=== PATIENT | female | born 1960 | race Caucasian/White ===

== ENCOUNTER 2017-04-26 04:39 | Outpatient (CLI) | payer MEDICARE ==
--- NOTE | ~2017-04-26 | HEMODYNAMI ---
PATIENT:JUAN J TORIBIO MEDICAL RECORD: [id number] : 60 [id number] ADMISSION DATE: 04/26/17 Generatedon:04/26/201710:51 Patient name: JUAN J TORIBIO Patient #: [id number] SSN: : 1960 Date of study: 04/26/2017 Page: Of Hemodynamic Procedure Report Patient Data Patient Demographics Procedure consent was obtained First Name: JUAN J Gender: Female Last Name: MALU : 1960 Patient #: [id number] Age: 57 year(s) Race: Unknown Additional ID: [id number] Contact details [address]: [address] [place] [address] State: [place] City: [place] Zip code: [address] Past Medical History Allergies Allergen Reaction Date Comments Reported Other allergy 04/26/2017 Aleve, Hydrocodone Admission Admission Data Admission Date: 04/26/2017 Admission Time: 4:01 [facility] Results Lab Result Date: 04/26/2017 Lab Result Time: 0:00 Biochemistry Name Units Result Min Max Creatinine mg/dl 1.6 --(----)-* 0.6 1.3 CBC Name Units Result Min Max Hemoglobin g/dl 11.1 *-(----)-- 13.5 17.5 Procedure Procedure Types Cath Procedure Diagnostic Procedure [facility] w/Coronaries FFR/IVUS Intra-Coronary IVUS Initial PCI Procedure Coronary Stent Initial Miscellaneous Procedures Moderate Sedation up to 30 minutes Procedure Description Procedure Date Procedure Date: 04/26/2017 Procedure Start Time: 10:28 Procedure End Time: 10:51 Procedure Staff Name Function Ravinder Underwood MD Performing Physician Kj Estevez RT Scrub Caroline Araya RN Nurse Ana King RT Monitor Procedure Data Cath Procedure Fluoroscopy Diagnostic fluoroscopy Total fluoroscopy Time: 4 time: 4 min min Diagnostic fluoroscopy Total fluoroscopy dose: 616 dose: 616 mGy mGy Contrast Material Contrast Material Type Amount (ml) Isovue 300 94 Entry Location Entry Primary Successful Side Size Upsize Upsize Entry Closure Succes sful Closure Location (Fr) 1 (Fr) 2 (Fr) Remarks Device Remarks Femoral Right 5 Fr 6 Fr Exoseal artery Short Estimated blood loss: 10 ml Diagnostic catheters Device Type Used For End Catheter Placement Cordis 5Fr Pigtail LV Angiography Catheter (MP) Cordis 5Fr JL 4.0 Left Coronary Catheter (MP) Angiography Cordis 5Fr 3DRC Catheter Right Coronary (MP) Angiography Procedure Complications No complications Procedure Medications Medication Administration Route Dosage Oxygen NC 2 l/min 0.9% NaCl I.V. 100 ml/hr Lidocaine 2% added to field 20 Heparin Flush Bag added to field 2 bags (1000units/500ml NS) Versed I.V. 1 mg Fentanyl I.V. 50 mcg Versed I.V. 1 mg Fentanyl I.V. 50 mcg Fentanyl I.V. 50 mcg Heparin Bolus I.V. 4000 units Plavix P.O. 75 mg Hemodynamics Rest HGB: 11.1 (g/dl) Heart Rate: 79 (bpm) Snapshots Pre Cath Intra NCS Post Cath Vital Signs Time Heart Resp SPO2 NIBP (mmHg) Rhythm Pain Sedation Rate (ipm) (%) Status Level (bpm) 10:11:43 76 14 99 119/73(107) NSR 0 (11) 10(A) , No pain 10:16:42 79 19 100 134/75(112) NSR 0 (11) 10(A) , No pain 10:20:54 78 16 99 112/68(104) NSR 0 (11) 10(A) , No pain 10:25:04 80 17 96 106/64(80) NSR 0 (11) 10(A) , No pain 10:29:10 81 14 98 98/68(91) NSR 0 (11) 9(A) , No pain 10:33:14 84 15 95 91/73(85) NSR 0 (11) 9(A) , No pain 10:39:14 84 15 97 104/85(101) NSR 0 (11) 9(A) , No pain 10:43:18 76 17 98 113/83(107) NSR 0 (11) 9(A) , No pain 10:47:26 86 17 98 123/77(92) NSR 0 (11) 10(A) , No pain 10:51:34 85 9 99 126/83(114) NSR 0 (11) 10(A) , No pain Medications Time Medication Route Dose Verified Delivered Reason Notes Effectiveness by by 10:10:38 Oxygen NC 2 Ravinder Bubbaie used for l/min Kj Araya RN procedure 10:10:54 0.9% NaCl I.V. 100 Ravinder Buffie Per physician ml/hr Kj Araya RN 10:11:07 Lidocaine 2% added 20ml Ravindermartin Castellon for local to vial Kj Underwood MD anesthetic field 10:11:14 Heparin Flush added 2 Ravinder Ravinder used for Bag to bags Kj Underwood MD procedure (1000units/500ml field NS) 10:23:04 Versed I.V. 1 mg Ravinder Velazquez for sedation Kj Araya RN 10:23:11 Fentanyl I.V. 50 Ravinder Macie for sedation mcg Kj Araya RN 10:32:51 Versed I.V. 1 mg Ravinder Velazuqez for sedation Kj Araya RN 10:32:54 Fentanyl I.V. 50 Ravinder Velazquez for sedation mcg Kj Araya RN 10:36:36 Fentanyl I.V. 50 Ravinder Macie for sedation mcg Kj Araya RN 10:37:21 Heparin Bolus I.V. 4000 Ravinder Velazquez for verifi ed units Kj Araya RN anticoagulation with dr underwood 10:49:15 Plavix P.O. 75 mg Ravinder Velazquez for Kj Araya RN antiplatelet therapy Procedure Log Time Note 9:57:06 Informed consent obtained and on chart 9:57:27 Diagnostic Cath status Elective 9:57:29 Caroline Araya RN sent for patient. Start room use. 9:57:30 Time tracking: Regular hours 9:57:33 Plan of Care:Hemodynamics will remain stable., Cardiac rhythm will remain stable., Comfort level will be maintained., Respiratory function will remain adequate., Patient/ family verbilizes understanding of procedure., Procedure tolerated without complication., Recovers from procedure without complications.. 9:58:06 H&P Date Dictated: 04/26/2017 Within 30 days and on chart.. 10:06:01 Patient received from Med II to [facility] 2 Alert and oriented. Tansferred to table in Supine position. 10:06:06 Warm blankets applied, and casimiro hugger turned on for patient comfort. 10:06:07 ECG and BP/O2 sat monitors applied to patient. 10::09 Pre-procedure instructions explained to patient. 10::09 Pre-op teaching completed and patient verbalized understanding. 10:06:11 Family in patients room. 10:06:12 Patient NPO since Midnight. 10::41 Patient allergic to Other allergyAleve, Hydrocodone 10::43 Is the patient allergic to Iodine/contrast media? No. 10::44 Was the patient premedicated? No 10:09:46 Is patient on blood thinner?Yes 10::50 ACC The patient was administered the following blood thiners within the last 24 hours: ACCPlavix 10:09:54 Patient diabetic? Yes. 10:09:58 If diabetic: On Metformin? No 10:10:01 Previous problem with sedation/anesthesia? No ? 10:10:04 Snore? Yes 10:10:05 Sleep apnea? Yes 10:10:06 Deviated septum? No 10:10:07 Opens mouth fully? Yes 10:10:07 Sticks out tongue? Yes 10:10:12 Airway obstruction? Yes copd 10:10:21 Dentures? Yes in tight 10:10:38 Oxygen 2 l/min NC was administered by Caroline Araya RN; used for procedure; 10::41 Vital chart was started 10:10:54 0.9% NaCl 100 ml/hr I.V. was administered by Caroline Araya RN; Per physician; 10:11:06 Pre procedure: right dorsailis pedis pulse 2+ Normal; easily identifiable; not easily obliterated 10:11:07 Lidocaine 2% 20ml vial added to field was administered by Ravinder Underwood MD; for local anesthetic; 10:11:08 Pre procedure: left dorsailis pedis pulse 2+ Normal; easily identifiable; not easily obliterated 10:11:10 Patient pain scale 0/10 ?. 10:11:14 Heparin Flush Bag (1000units/500ml NS) 2 bags added to field was administered by Ravinder Underwood MD; used for procedure; 10:11:18 IV patent on arrival in right wrist with 0.9% NaCl at [facility]. 10:13:42 Lab Result : Creatinine 1.6 mg/dl 10:13:42 Lab Result : Hemoglobin 11.1 g/dl 10:15:07 Lab results completed and on chart. 10:15:13 Right groin area was prepped with chlora-prep and draped in sterile fashion 10:15:14 Alarms reviewed by R. N. 10:15:14 Sharps counted by scrub and verified by R.N. 10:15:16 Use device set Femoral Dx 10:15:17 Acist Syringe opened to sterile field. 10:15:18 Bag Decanter opened to sterile field. 10:15:18 Medline Cath Pack opened to sterile field. 10:15:18 Terumo 5Fr [place] Sheath opened to sterile field. 10:15:19 St Giovanni 260cm J .035 wire opened to sterile field. 10:15:20 Acist Hand Control opened to sterile field. 10:15:20 Acist Manifold opened to sterile field. 10:15:21 Diagnostic Infinity 5Fr Multipack catheter opened to sterile field. 10:15:21 Tegaderm 4 x 4 opened to sterile field. 10:17:31 Baseline sample Acquired. 10:20:25 Final Timeout: patient, procedure, and site verified with staff and physician. All members of the team are in agreement. 10:20:27 Right groin site verified by team. 10:20:30 Physical assessment completed. ASA score P 2 - A patient with mild systemic disease as per Ravinder Underwood MD. 10:20:33 Sedation plan: IV Moderate Sedation Versed, Fentanyl 10:23:04 Versed 1 mg I.V. was administered by Caroline Araya RN; for sedation; 10:23:11 Fentanyl 50 mcg I.V. was administered by Caroline Araya RN; for sedation; 10:24:22 Zero performed for pressure channel P1 10:27:36 PERCUTANEOUS ENTRY 19GA needle opened to sterile field. 10:28:49 Procedure started. 10:28:49 Full Disclosure recording started 10:28:59 Local anesthetic to right femoral artery with Lidocaine 2% by Ravinder Underwood MD.INITIAL ACCESS ONLY 10:31:58 A 5 Fr sheath was inserted into the Right Femoral artery 10:32:40 A Cordis 5Fr Pigtail Catheter (MP) was advanced over the wire and used for LV Angiography. 10:32:51 Versed 1 mg I.V. was administered by Caroline Araya RN; for sedation; 10:32:54 Fentanyl 50 mcg I.V. was administered by Caroline rAaya RN; for sedation; 10:33:27 LV gram done using WOO 10:33:36 EF : 60 % 10:33:39 Injector settings: Ml/sec: 10, Volume: 20, 10:33:40 Catheter removed. 10:33:56 A Cordis 5Fr JL 4.0 Catheter (MP) was advanced over the wire and used for Left Coronary Angiography. 10:35:13 Catheter removed. 10:35:21 A Cordis 5Fr 3DRC Catheter (MP) was advanced over the wire and used for Right Coronary Angiography. 10:35:35 Terumo 6Fr [place] Sheath opened to sterile field. 10:35:36 Evident Software BasixCompak Inflation Kit opened to sterile field. 10:35:36 Lowry Whisper J 300cm 0.014 guide wire opened to sterile field. 10:36:11 [place]wood [employer] [place] IVUS Catheter opened to sterile field. 10:36:36 Fentanyl 50 mcg I.V. was administered by Caroline Araya RN; for sedation; 10:37:21 Heparin Bolus 4000 units I.V. was administered by Caroline Araya RN; for anticoagulation; verified with dr underwood 10:37:38 Medtronic Launcher 6Fr AR 1.0 guide catheter opened to sterile field. 10:37:46 Catheter removed. 10:37:53 Sheath upsized to a 6 Fr Short. 10:37:58 6 Fr AR 1.0 guide catheter was inserted over the wire 10:38:01 Guide Catheter removed. pressure damping. 10:38:06 Medtronic Launcher 6Fr AR 1.0 SH guide catheter opened to sterile field. 10:38:31 6 Fr AR 1.0 SH guide catheter was inserted over the wire 10:38:56 Whisper wire advanced. 10:39:26 IVUS catheter advanced over wire. 10:39:29 IVUS pass to RCA lesion performed. 10:39:37 Procedure type changed to Cath procedure, Diagnostic procedure, LHC, [facility] w/Coronaries, FFR/IVUS, Intra-Coronary IVUS Initial, PCI procedure, Coronary Stent Initial, Miscellaneous Procedures, Moderate Sedation up to 30 minutes 10:43:01 IVUS catheter removed over wire. 10:45:05 Inflation Number: 1 A Promus Premier OTW 3.0 x 38 stent was prepped and advanced across the Prox RCA. The stent was deployed at 13 KRISTAL for 0:09 (min:sec). 10:45:24 Stent catheter was removed intact over wire. 10:45:25 Wire removed. 10:45:25 Guide catheter removed. 10:45:38 Sheath removed intact; hemostasis achieved with Exoseal to the Right Femoral artery. 10:45:45 Cordis 6Fr Exoseal opened to sterile field. 10:45:47 Procedure ended.(Physican Out) 10:49:03 Fluoroscopy time 04.00 minutes. 10:49:06 Fluoroscopy dose: 616 mGy 10:49:06 Flurop Dose total: 616 10:49:09 Contrast amount:Isovue 300 94ml. 10:49:10 Sharps counted by scrub and verified by R.N. 10:49:11 Insertion/operative site no bleeding no hematoma. 10:49:13 Post-op/insertion site Right Femoral artery dressed using a 4 x 4 and Tegaderm. 10:49:15 Plavix 75 mg P.O. was administered by Caroline Araya RN; for antiplatelet therapy; 10:49:17 Post right femoral artery:stable, clean and dry 10:49:19 Post Procedure Pulses reassessed and unchanged 10:49:21 Post-procedure physical assessment completed. ASA score P 2 - A patient with mild systemic disease as per Ravinder Underwood MD. 10:49:23 Post procedure rhythm: unchanged. 10:49:25 Estimated blood loss: 10 ml 10:49:31 Post procedure instruction explained to patient.Patient verbalizes understanding. 10:49:31 Patient needs reinforcement of post procedure teaching. 10:49:37 Procedure Complication : No complications 10:49:39 See physician's report for complete and final results. 10:50:38 Procedure and supply charges have been captured, reviewed, submitted and are correct. 10:51:19 Vital chart was stopped 10:51:22 Report given to PCU. 10:51:25 Patient transfered to PCU with Bed. 10:51:31 Procedure ended. 10:51:31 Full Disclosure recording stopped 10:51:34 End room use (Document Last) Intervention Summary Intervention Notes Time ActionType Lesion and Equipment Action# Pressure Duration Attributes Used 10:45:05 Place stent Prox RCA Promus 1 13 00:09 Premier OTW 3.0 x 38 stent Device Usage Item Name Manufacture Quantity Catalog Number Hospital Part Current Min imal Lot# / Charge Number Stock Stock Serial# Code Acist Acist 1 [id number] [id number] [id number] 20 Syringe Medical Systems Inc Bag Decanter Microtek 1 2002S 014936 91618 124764 5 Medical Inc. Medline Cath Cardinal 1 [id number] 892253 16476 939720 5 Pack Health Terumo 5Fr Terumo 1 [id number] 200610 027673 566637 [address] Giovanni 1 [id number] 202720 998991 430376 30 260cm J .035 wire Acist Hand Acist 1 85119 166844 930501 980599 5 Control Medical Systems Inc Acist Acist 1 95068 750719 676818 352657 5 Manifold Medical Systems Inc Diagnostic Cardinal 1 UL5517 226726 94692 278291 30 Infinity 5Fr Health Multipack catheter Tegaderm 4 x 3M 1 1626W 166593 801674 097372 5 4 PERCUTANEOUS [facility] 1 [id number] 692198 376207 5 ENTRY 19GA needle Cordis 5Fr Cardinal 1 263182 5 Pigtail Health Catheter (MP) Cordis 5Fr Cardinal 1 242797 5 JL 4.0 Health Catheter (MP) Cordis 5Fr Cardinal 1 917886 5 3DRC Health Catheter (MP) Terumo 6Fr Terumo 1 [id number] 741003 858907 290589 40 [place] Sheath Merit Merit 1 [id number] 803303 332705 748091 15 [facility] Inflation Kit Lowry Lowry 1 [id number] 948120 489066 416192 5 Whisper J Vascular 300cm 0.014 guide wire Elwood Elwood 1 [id number] 993469 922777 854792 8 [employer] IVUS Catheter Medtronic Medtronic 1 [id number] 391420 93753 832771 1 Launcher 6Fr AR 1.0 guide catheter Medtronic Medtronic 1 [id number] 124580 88382 716783 1 Launcher 6Fr AR 1.0 SH guide catheter Promus Capay 1 [id number] 066933 696984 5 [id number] Premier OTW Scientific 3.0 x 38 stent Cordis 6Fr Cardinal 1 [id number] 334844 501914 056704 10 [facility] Health Signature Audit [place] Stage Time Signature Unsigned Intra-Procedure 04/26/2017 Ana 10:51:47 AM Counts RT(R) Signatures Monitor : Ana Signature : Counts RT Date : Time : [address] [place] [address]
--- NOTE | ~2017-04-26 | DS ---
PATIENT:JUAN J TIPTON :60 MEDICAL RECORD: [id number] DISCHARGE SUMMARY ADMISSION DATE: 04/26/17 DISCHARGE DATE: DATE OF SERVICE: 04/27/2017. DISCHARGE DIAGNOSES: 1. Angina, unstable. 2. Coronary artery disease. 3. Percutaneous transluminal coronary angioplasty stent to right coronary artery and left circumflex this admission. HOSPITAL COURSE: Mrs. Tipton presents with unstable angina, found to have 2-vessel disease of the RCA and left circumflex, underwent successful PTCA stent of above, had an uneventful postop course. She was discharged home with the addition of aspirin and Plavix to her medical regimen. Will follow up with [facility] in 1 month. TRANSINT:[id number] Voice Confirmation ID: [id number] DOCUMENT ID: [id number] BRANDON REINA MD CC: [id number] DICTATION DATE: 04/27/17825 SPRAY MAKER: 04/27/[address] [facility] [address] [id number]
--- NOTE | ~2017-04-26 | OP ---
PATIENT NAME: JUAN J TORIBIO MEDICAL RECORD: [id number] :60 LOCATION:D.M2 D.2119 ADMISSION DATE:04/26/17 SURGEON: BRANDON REINA MD DATE OF OPERATION: 04/27/2017 PROCEDURES: 1. PTCA stent left circumflex. 2. PTCA LAD. 3. Selective coronary angiography. INDICATIONS: Angina and coronary artery disease. PROCEDURE IN DETAIL: After informed consent was obtained and after detailed explanation of risks, benefits as well as alternative therapies, the patient elected to proceed with angiogram and angioplasty. The left femoral area was prepped and draped in normal sterile fashion. Left femoral artery was cannulated via modified Seldinger technique with placement of 6-Occitan sheath. All catheters exchanged through this sheath. FINDINGS: The left circumflex has 90% stenosis at the ostium. This was addressed with a 3.0 x 8 mm [place] stent, this caused plaque shift into the LAD. The LAD was ballooned with a stent balloon. Result was 0% residual throughout. OVERALL IMPRESSION: Successful percutaneous transluminal coronary angioplasty stent of the left circumflex going from 90% initial stenosis to 0% residual stenosis. TRANSINT:[id number] Voice Confirmation ID: [id number] DOCUMENT ID: [id number] BRANDON REINA MD CC: [id number] DICTATION DATE: 04/27/17826 SALES AGENT PEST CONTROL SERVICE: 04/27/17 09 ADM IN [place] [id number] [place] [id number]
--- NOTE | ~2017-04-26 | HEMODYNAMI ---
PATIENT:JUAN J TORIBIO MEDICAL RECORD: [id number] : 60 [facility] [id number] ADMISSION DATE: 04/26/17 Generatedon:04/27/20178:27 Patient name: JUAN J TORIBIO Patient #: [id number] : 1960 Date of study: 04/27/2017 Page: Of Hemodynamic Procedure Report Patient Data Patient Demographics Procedure consent was obtained First Name: JUAN J Gender: Female Last Name: MALU : 1960 Patient #: [id number] Age: 57 year(s) Race: SSN: [id number] Additional ID: [id number] Contact details [address]: [address] [place] [address] State: [place] City: [place] Zip code: [address] Past Medical History Allergies Allergen Reaction Date Comments Reported Other allergy 04/26/2017 Aleve, Hydrocodone Admission Admission Data Admission Date: 04/26/2017 Admission Time: 4:01 Arrival Date: 04/26/2017 Arrival Time: 4:01 Admit Source: Other Insurance Payor: Medicare Room #: D.2119 Lab Results Lab Result Date: 04/27/2017 Lab Result Time: 0:00 Biochemistry Name Units Result Min Max BUN mg/dl 24 --(----)-* 7 18 Creatinine mg/dl 1.6 --(----)-* 0.6 1.3 CBC Name Units Result Min Max Hemoglobin g/dl 11.1 *-(----)-- 13.5 17.5 Procedure Procedure Types Cath Procedure PCI Procedure Coronary Stent Initial Miscellaneous Procedures Moderate Sedation up to 30 minutes Procedure Description Procedure Date Procedure Date: 04/27/2017 Procedure Start Time: 8:14 Procedure End Time: 8:25 Procedure Staff Name Function Ravinder Underwood MD Performing Physician Brynn Hein RT Scrub Shravan Peace RT Scrub Walter Nelson RN Nurse Idalia Diaz RT Monitor Indication Angina Procedure Data Cath Procedure Fluoroscopy Diagnostic fluoroscopy Total fluoroscopy Time: 3.1 time: 3.1 min min Diagnostic fluoroscopy Total fluoroscopy dose: 292 dose: 292 mGy mGy Contrast Material Contrast Material Type Amount (ml) Isovue 300 35 Entry Location Entry Primary Successful Side Size Upsize Upsize Entry Closure Succes sful Closure Location (Fr) 1 (Fr) 2 (Fr) Remarks Device Remarks Femoral Left 6 Fr Exoseal artery Short Estimated blood loss: 5 ml Procedure Complications No complications Procedure Medications Medication Administration Route Dosage 0.9% NaCl I.V. 100 ml/hr Oxygen NC 2 l/min Heparin Flush Bag added to field 2 bags (1000units/500ml NS) Lidocaine 2% added to field 20 Versed I.V. 1 mg Fentanyl I.V. 50 mcg Versed I.V. 1 mg Fentanyl I.V. 50 mcg Heparin Bolus I.V. 4000 units Hemodynamics Rest HGB: 11.1 (g/dl) Heart Rate: 79 (bpm) Snapshots Pre Cath Intra NCS Post Cath Vital Signs Time Heart Resp SPO2 etCO2 RU6cgns NIBP (mmHg) Rhythm Pain Sedation Rate (ipm) (%) (mmHg) (mmHg) Status Level (bpm) 8:00:46 78 10 100 0 0 146/74(104) NSR 0 (11) 10(A) , No pain 8:05:35 79 16 97 0 0 133/49(126) NSR 0 (11) 10(A) , No pain 8:10:13 80 16 98 0 0 93/63(72) NSR 0 (11) 9(A) , No pain 8:15:31 78 14 98 0 0 121/46(64) NSR 0 (11) 9(A) , No pain 8:20:19 80 14 97 0 0 114/41(62) NSR 0 (11) 9(A) , No pain 8:25:06 80 16 99 0 0 113/44(66) NSR 0 (11) 9(A) , No pain Medications Time Medication Route Dose Verified Delivered Reason Notes Effectiveness by by 7:58:35 0.9% NaCl I.V. 100 Walter Walter Per physician ml/hr Omar Nelson RN RN 7:58:51 Oxygen NC 2 Walter Walter Per physician l/min Omar Nelson RN RN 7:59:11 Heparin Flush added 2 Walter Walter used for Bag to bags Omar Nelson procedure (1000units/500ml field RN RN NS) 7:59:28 Lidocaine 2% added 20ml Walter Walter for local to vial Omar Nelson anesthetic field RN RN 8:04:24 Versed I.V. 1 mg Walter Walter for sedation Omar Nelson RN RN 8:04:35 Fentanyl I.V. 50 Walter Walter for sedation mcg Omar Nelson RN RN 8:14:47 Versed I.V. 1 mg Walter Walter for sedation Omar Nelson RN RN 8:14:59 Fentanyl I.V. 50 Walter Walter for sedation mcg Omar Nelson RN RN 8:18:40 Heparin Bolus I.V. 4000 Walter Walter for units Omar Nelson anticoagulation RN cartoon designer Log Time Note 7:42:06 Informed consent obtained and on chart 7:42:11 Diagnostic Cath Status : Elective 7:42:39 Indication : Angina 7:42:44 Shravan Peace RT(R) sent for patient. Start room use. 7:42:45 Time tracking: Regular hours 7:42:50 Plan of Care:Hemodynamics will remain stable., Cardiac rhythm will remain stable., Comfort level will be maintained., Respiratory function will remain adequate., Patient/ family verbilizes understanding of procedure., Procedure tolerated without complication., Recovers from procedure without complications.. 7:45:26 Admit Source: Other 7:45:34 Arrival Date: 04/26/2017 4:01:00 AM 7:45:45 Insurance Payor : Medicare 7:46:37 Lab Result : Hemoglobin 11.1 g/dl 7:46:37 Lab Result : Creatinine 1.6 mg/dl 7:46:37 Lab Result : BUN 24 mg/dl 7:53:43 Patient received from Med II to CCL 1 Alert and oriented. Tansferred to table in Supine position. 7:53:44 Warm blankets applied, and casimiro hugger turned on for patient comfort. 7:53:45 Correct patient and procedure confirmed by team. 7:53:45 ECG and BP/O2 sat monitors applied to patient. 7:58:35 0.9% NaCl 100 ml/hr I.V. was administered by Walter Nelson RN; Per physician; 7:58:51 Oxygen 2 l/min NC was administered by Walter Nelson RN; Per physician; 7:59:11 Heparin Flush Bag (1000units/500ml NS) 2 bags added to field was administered by Walter Nelson RN; used for procedure; 7:59:28 Lidocaine 2% 20ml vial added to field was administered by Walter Nelson RN; for local anesthetic; 7:59:47 Vital chart was started 8:00:50 Baseline sample Acquired. 8:00:55 Rhythm: sinus rhythm 8:00:56 Full Disclosure recording started 8:01:07 H&P Date Dictated: 04/26/2017 Within 30 days and on chart., H&P Addendum completed by physician on day of procedure. (MUST COMPLETE FOR ALL OUTPATIENTS). 8:01:15 Pre-procedure instructions explained to patient. 8:01:16 Pre-op teaching completed and patient verbalized understanding. 8:01:24 Family in patients room. 8:01:25 Patient NPO since Midnight. 8:01:27 Is the patient allergic to Iodine/contrast media? No. 8:01:29 Is patient on blood thinner?Yes 8:01:31 ACC The patient was administered the following blood thiners within the last 24 hours: ACCPlavix 8:01:34 Patient diabetic? Yes. 8:01:36 If diabetic: On Metformin? No 8:01:39 Previous problem with sedation/anesthesia? No ? 8:01:42 Snore? Yes 8:01:48 Sleep apnea? Yes 8:01:49 Deviated septum? No 8:01:50 Opens mouth fully? Yes 8:01:50 Sticks out tongue? Yes 8:01:55 Airway obstruction? Yes COPD 8:02:13 Dentures? No ? 8:02:16 Pre procedure: left dorsailis pedis pulse 1+ Palpable, but thready & weak; easily obliterated 8:02:24 Patient pain scale 0/10 ?. 8:02:29 IV patent on arrival in right forearm with 0.9% NaCl at [facility]. 8:02:42 Lab results completed and on chart. 8:02:45 Left groin area was prepped with chlora-prep and draped in sterile fashion 8:03:43 Pt's abdomen was taped back for groin access. 8:03:45 Alarms reviewed by R. N. 8:03:46 Sharps counted by scrub and verified by R.N. 8:03:49 --------ALL STOP TIME OUT------ 8:03:50 Final Timeout: patient, procedure, and site verified with staff and physician. All members of the team are in agreement. 8:03:54 Left groin site verified by team. 8:03:57 Physical assessment completed. ASA score P 2 - A patient with mild systemic disease as per Ravinder Underwood MD. 8:04:00 Sedation plan: IV Moderate Sedation Versed, Fentanyl 8:04:24 Versed 1 mg I.V. was administered by Walter Nelson RN; for sedation; 8:04:35 Fentanyl 50 mcg I.V. was administered by Walter Nelson RN; for sedation; 8:06:29 Use device set Femoral PCI 8:06:31 Acist Syringe opened to sterile field. 8:06:31 Acist Hand Control opened to sterile field. 8:06:31 Bag Decanter opened to sterile field. 8:06:32 Medline Cath Pack opened to sterile field. 8:06:32 Terumo 6Fr Marietta Sheath opened to sterile field. 8:06:32 St Giovanni 260cm J .035 wire opened to sterile field. 8:06:33 Merit BasixCompak Inflation Kit opened to sterile field. 8:06:33 Acist Manifold opened to sterile field. 8:06:34 Tegaderm 4 x 4 opened to sterile field. 8:09:58 Zero performed for pressure channel P1 8:10:06 Zero performed for pressure channel P1 8:10:22 PCI Cath status Elective 8:14:37 Lowry Whisper J 300cm 0.014 guide wire opened to sterile field. 8:14:38 Cordis 6FR XBLAD 4.0 guide catheter opened to sterile field. 8:14:41 Procedure started. 8:14:46 Local anesthetic to left femerol artery with Lidocaine 2% by Ravinder Underwood MD.INITIAL ACCESS ONLY 8:14:47 Versed 1 mg I.V. was administered by Walter Nelson RN; for sedation; 8:14:55 A 6 Fr Short sheath was inserted into the Left Femoral artery 8:14:59 Fentanyl 50 mcg I.V. was administered by Walter Nelson RN; for sedation; 8:16:27 6 Fr xblad 4 guide catheter was inserted over the wire 8:17:12 whisper wire advanced. 8:18:40 Heparin Bolus 4000 units I.V. was administered by Walter Nelson RN; for anticoagulation; 8:18:54 Wire advanced across lesion. 8:20:39 Inflation Number: 1 A Sung OTW 3.0 x 08 stent was prepped and advanced across the Prox CX. The stent was deployed at 15 KRISTAL for 0:10 (min:sec). 8:21:16 Wire redirected to lad. 8:22:15 Inflation number: 1 The stent balloon was then re-inflated across the Prox LAD to 11 KRISTAL for 0:10 (min:sec). 8:22:20 Stent catheter was removed intact over wire. 8:22:20 Wire removed. 8:22:21 Guide catheter removed. 8:22:33 Cordis 6Fr Exoseal opened to sterile field. 8:22:45 Sheath removed intact; hemostasis achieved with Exoseal to the Left Femoral artery. 8:22:47 Procedure ended.(Physican Out) 8:23:31 Fluoroscopy time 03.10 minutes. 8:23:35 Flurop Dose total: 292 8:23:35 Fluoroscopy dose: 292 mGy 8:23:40 Contrast amount:Isovue 300 35ml. 8:23:42 Sharps counted by scrub and verified by R.N. 8:23:43 Insertion/operative site no bleeding no hematoma. 8:23:46 Post-op/insertion site Left Femoral artery dressed using a 4 x 4 and Tegaderm. 8:23:50 Post left femerol artery:stable 8:23:52 Post Procedure Pulses reassessed and unchanged 8:23:58 Post procedure rhythm: unchanged. 8:24:01 Estimated blood loss: 5 ml 8:24:02 Post procedure instruction explained to patient.Patient verbalizes understanding. 8:24:03 Patient needs reinforcement of post procedure teaching. 8:24:40 Procedure type changed to Cath procedure, PCI procedure, Coronary Stent Initial, Miscellaneous Procedures, Moderate Sedation up to 30 minutes 8:25:19 Procedure and supply charges have been captured, reviewed, submitted and are correct. 8:25:24 Procedure Complication : No complications 8::41 Vital chart was stopped 8:25:41 See physician's report for complete and final results. 8:25:44 Report given to [facility]. 8:25:47 Patient transfered to [facility] with Stretcher. 8:25:48 Procedure ended. 8:25:48 Full Disclosure recording stopped 8:25:55 ACC-PCI Only Patient was given prescriptions, or instructed by Ravinder Underwood MD to start/continue the following medications upon discharge: Plavix 8:25:57 End room use (Document Last) Intervention Summary Intervention Notes Time ActionType Lesion and Equipment Action# Pressure Duration Attributes Used 8:20:39 Place stent Prox CX Ashford OTW 1 15 00:10 3.0 x 08 stent 8:22:15 Reinflate Prox LAD Ashford OTW 1 11 00:10 stent 3.0 x 08 balloon stent Device Usage Item Name Manufacture Quantity Catalog Hospital Part Current Minima l Lot# / Number Charge Number Stock Stock Serial# Code Acist Acist 1 66716 [id number] 581979 068425 20 Syringe Medical Systems Inc Acist Hand Acist 1 13483 345098 159857 328269 5 Control Medical Systems Inc Bag Microtek 1 2002S 821415 73751 504445 5 Wings Intellect Inc. Medline Cardinal 1 [id number] 439117 36786 821840 5 Cath Pack Health Terumo 6Fr Terumo 1 [id number] 529457 216897 096503 [address] St Giovanni 1 375502 176400 593872 359086 30 260cm J .035 wire Merit Merit 1 [id number] 360811 839611 494457 15 Anyang Phoenix Photovoltaic TechnologyixLeap4Life Global Medical Inflation Kit Acist Acist 1 35368 635337 288852 168552 5 SafeAwake Medical Systems Inc Tegaderm 4 3M 1 1626W 401878 886422 486193 5 x 4 Lowry Lowry 1 [id number] 702939 978629 062532 5 Whisper J Vascular 300cm 0.014 guide wire Cordis 6FR Cardinal 1 [id number] 922172 605166 494081 3 XBLAD 4.0 Health guide catheter Sung OTW Medtronic 1 [id number] 828145 9925403 467398 5 [id number] 3.0 x 08 stent Cordis 6Fr Cardinal 1 EX600 580193 275752 987545 10 [facility] Health Signature Audit Hazel Hurst Stage Time Signature Unsigned Intra-Procedure 04/27/2017 Idalia Diaz 8:27:47 AM RT(R) Signatures Monitor : Idalia Diaz RT Signature : Date : Time : [place] [id number] [place] [address]
--- NOTE | ~2017-04-26 | OP ---
PATIENT NAME: JUAN J TORIBIO MEDICAL RECORD: [id number] :60 LOCATION:D.M2 D.2119 ADMISSION DATE:04/26/17 SURGEON: BRANDON REINA MD DATE OF OPERATION: 04/26/2017 PROCEDURE: 1. PTCA stent to RCA. 2. Intravascular ultrasound. 3. Left heart catheterization. 4. Selective coronary angiography. 5. Left ventriculogram. INDICATION: Angina and coronary artery disease. PROCEDURE IN DETAIL: After informed consent was obtained and after detailed explanation of risks, benefits as well as alternative therapies, the patient elected to proceed with angiogram and angioplasty. The right radial area was prepped and draped in normal sterile fashion. Right radial artery was cannulated via modified Seldinger technique with placement of 6-Namibian sheath. All catheters were exchanged through this sheath. FINDINGS: The left ventriculogram was performed in standard 30-degree WOO view, reveals preserved cardiac wall motion, ejection fraction 55%. SELECTIVE CORONARY ANGIOGRAPHY: 1. Left main showed no significant angiographic disease. 2. Left anterior descending has previously placed stent. This is widely patent with no significant restenosis. No disease elsewise throughout the LAD or its branches. 3. Left circumflex has 90% stenosis at the ostium. 4. The right coronary has a long area of 80% stenosis confirmed by intravascular ultrasound. PTCA STENT OF THE RIGHT CORONARY ARTERY: The stent used was 3.0x38 mm Promus. Result was 0% residual stenosis. OVERALL IMPRESSION: Successful percutaneous transluminal coronary angioplasty stent of the right coronary artery going from a long area of 80% initial stenosis to 0% residual stenosis. PLAN: PTCA stent of the left circumflex in the near future. TRANSINT:[id number] Voice Confirmation ID: [id number] DOCUMENT ID: [id number] BRANDON REINA MD CC: [id number] DICTATION DATE: 04/26/17 1103 TERRITORY SERVICE REPRESENTATIVE: 04/26/17 1124 ADM IN [place] [id number] [place] [address]
[2017-04-26 04:00] VITALS: BP 130/70
--- NOTE | 2017-04-26 04:34 | NUR ---
ARRIVED TO FLOOR AND PLACED ON TELEMETRY. ORIENTED TO UNIT, CALL LIGHT IN REACH. CONSENTS OBTAINED. NPO AT THIS TIME. WILL CONTINUE TO MONITOR. SEE NURSE ASSESSMENT.
[~2017-04-26 04:39] MED LIST: BUPROPION HCL150 M1 PO; BUPROPION XL150 MG PO; FUROSEMIDE40 MG; HUMULIN R100 U/ML SC; K-DUR20 MEQ PO; LANOXIN125 MCG PO; LEVOTHYROXINE50 MCG PO; NITROQUICK0.4 MG SL; PROAIR HFA8.5 GM INH; TOUJEO SOL300 UNIT/1
--- NOTE | 2017-04-26 07:15 | NUR ---
RECEIVED PT IN BED EYES CLOSED RESP UNLABORED NAD NOTED
[2017-04-26 08:25] VITALS: BP 118/49
[2017-04-26 09:45] LABS: BASOPHILS 0.6 % (0-2); EOSINOPHILS 1.9 % (0-7); HEMOGLOBIN 11.1 g/dL (12-16); IMMATURE GRANULOCYTES 0.4 % (0-5); LYMPHOCYTES 29.1 % (15-50); MCH 32.2 pg (26.0-34.0); MCHC 32.6 g/dL (31.0-37.0); MCV 98.6 fL (80.0-100.0); MEAN PLATELET VOLUME 9.8 fL (7.4-10.4); PLATELET COUNT 124 10x3/uL (130-400); RBC 3.45 10x6/uL (4.00-5.40); RDW 14.9 % (11.5-14.5)
[2017-04-26 10:02] LABS: CALCIUM 9.1 mg/dL (8.5-10.1); CARBON DIOXIDE 31.4 mmol/L (21.0-32.0); CREATININE - SERUM 1.6 mg/dL (0.6-1.3); POTASSIUM - SERUM 4.4 mmol/L (3.5-5.1)
--- NOTE | 2017-04-26 10:03 | NUR ---
PREOP MEDS GIVEN TO CORPORATE CLAIMS EXAMINER VIA BED
[2017-04-26 12:12] VITALS: BP 94/71
[2017-04-26 16:24] VITALS: BP 102/50
[2017-04-26 20:00] VITALS: BP 126/58
--- NOTE | 2017-04-26 21:18 | NUR ---
PT AWAKE/ALERT/ORIENTED. C/O CHEST PRESSURE. WANTING PAIN MEDICATION AND THERE ARE NO ORDERS FOR ANY. NOTED ALLERGIES TO HYDROCODONE AND MORPHINE. PAGE TO DR REINA FOR NEW ORDERS.
--- NOTE | 2017-04-26 21:50 | NUR ---
RETURN CALL FROM DR REINA. REVIEWED PT ALLERGIES. NEW PAIN MED ORDER RECIEVED.
[2017-04-27] VITALS: BP 117/51
[2017-04-27 04:00] VITALS: BP 123/59
--- NOTE | 2017-04-27 06:00 | NUR ---
AFTER TAKING ONE DOSE OF IV DILAUDID, PT DEVELOPED EXTREME ITCHING. MEDICATED WITH BENADRYL 25MG SIVP. TALKED IN DEPTH WITH PT ON WHY SHE SAYS SHE IS ALLERGIC TO MORPHINE AND HYDROCODONE. PT NOW SAYING THAT SHE ISNT REALLY ALLERGIC TOO THEM, JUST THAT IF SHE TAKES TOO MUCH SHE ACTS WEIRD. PT CHANGED UP HER REASONS SEVERAL TIMES SO FINALLY DC'D THE DILAUDID WHICH OBVIOUSLY CAUSED SEVERE ITCHING. DID NOT ALLOW PT TO THEN TAKE A DOSE OF IV MORPHINE AFTER SHE STOPPED ITCHING FROM THE DILAUDID. WILL MONITOR.
--- NOTE | 2017-04-27 08:04 | NUR ---
PRE-OPS GIVEN. TO DISTANCE EDUCATION DIRECTOR BY BED.
--- NOTE | 2017-04-27 08:45 | NUR ---
BACK FROM EDUCATION INSTRUCTOR. VS WNL. LEFT GROIN STABLE WITHOUT BLEEDING OR HEMATOMA NOTED. WILL MONITOR.
[2017-04-27 09:19] VITALS: BP 115/50
[2017-04-27 12:09] VITALS: BP 118/64
--- NOTE | 2017-04-27 12:19 | NUR ---
BED REST UP. GROIN STABLE.
[2017-04-27 14:54] VITALS: BP 119/64
[2017-04-27 19:00] VITALS: BP 105/55
--- NOTE | 2017-04-27 19:29 | NUR ---
RESUMED CARE OF PT, LYING IN BED RESPIRATIONS EVEN AND UNLABORED ON ROOM AIR. 85 SR ON TELEMETRY. SUKHDEV GROINS C/D/I WITH PEDAL PULSES PALPABLE. REQUESTS PAIN MEDICATION. WILL CONTINUE TO MONITOR. CALL LIGHT IN REACH. SEE NURSE ASSESSMEN.T
[2017-04-28] VITALS: BP 120/62
--- NOTE | 2017-04-28 02:42 | NUR ---
CALL LIGHT IN REACH, WILL CONTINUE WITH PLAN OF CARE.
[2017-04-28 04:00] VITALS: BP 142/60
--- NOTE | 2017-04-28 07:30 | NUR ---
ASSESSMENT COMPLETED. DENIES ANY PAIN AT PRESENT TIME.TELEMERTY SHOWS SR. O2 AT 2 L/M PER NC.DRSG TO RIGHT AND LEFT GROIN SOF WITH DRSG CLEAN AND DRY. PPP. RIGHT FOREARM SL. WILL MONITOR
[2017-04-28] MEDS ORDERED: PLAVIX75 MG PO (08:11)
[2017-04-28 08:29] VITALS: BP 110/58
--- NOTE | 2017-04-28 09:47 | NUR ---
NURSE AT GOING OVER DC PLANS. WILL CONT. PLAN OF CARE.
--- NOTE | 2017-04-28 12:34 | NUR ---
DCD. INSTRUCTIONS GIVEN. TO PRIVATE CAR PER WHEELCHAIR
== END 2017-04-28 12:37 | disposition home or self-care (01) ==
LOC: OBSVTIME → D.OPS 04:39 → EDSTATUS 10:00 → D.M2 15:06 → D.SDCHOLD 15:06 → D.M2 04-28 12:37 → D.OPS 04-28 12:37
PROVIDERS: Internal Medicine Interventional Cardiology
DX: I25.119 Atherosclerotic heart disease of native coronary artery with unspecified angina pectoris (principal); R07.9 Chest pain, unspecified; R06.02 Shortness of breath; F17.200 Nicotine dependence, unspecified, uncomplicated; I10 Essential (primary) hypertension; E11.9 Type 2 diabetes mellitus without complications; E78.5 Hyperlipidemia, unspecified; Z01.812 Encounter for preprocedural laboratory examination
CPT/HCPCS: 93458; 92978; 92920; C9600 ×2

== ENCOUNTER 2018-09-04 12:54 | Inpatient (IN) | payer MEDICARE ==
[~2018-09-04] VITALS: Ht 165.1 cm; Wt 94.4 kg
[2018-09-04] VITALS (7 sets, daily range): BP systolic 99–155; BP diastolic 61–68
[~2018-09-04 12:54] MED LIST changes: +PLAVIX75 MG PO
--- NOTE | 2018-09-04 13:24 | NUR ---
CC URINE COLLECTED ET TO LAB.
--- NOTE | 2018-09-04 16:20 | NUR ---
IV ZITHROMAX COMPLETED INFUSION AT THIS TIME.
--- NOTE | 2018-09-04 19:10 | NUR ---
ASSUMED CARE OF PATIENT, SHE IS RESTING QUIETLY ON STRETCHER, MEDICATION AND NS INFUSING PER ORDER, V/S STABLE LETTING HER REST.
--- NOTE | 2018-09-04 20:00 | NUR ---
PT NEEDING TO GOT TO THE BATHROOM, VERBALIZING HER NEEDS CLEARLY. SHE ASSISTED ME IN GETTING INTO A WHEELCHAIR TO TAKE HER TO THE BATHROOM. PATIENT IS VERY PLEASANT, STATES SHE DOESN'T REMEMBER WHAT HAPPENED FOR HER TO COME HER, BUT REMEMBERS EVERYTHING SINCE BEING HERE. CALL LIGHT WITHIN REACH.
--- NOTE | 2018-09-04 21:30 | NUR ---
PT STATES SHE FEELS MUCH BETTER. 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 PT IS A DIABETIC, AND AT TIMES IS NONCOMPLIANCE, SHE LIVES WITH HER DAUGHTER.
--- NOTE | 2018-09-04 23:00 | NUR ---
ASSISTED PATIENT TO THE BATHROOM, GAVE HER A SANDWICH TRAY, SHE IS SITTING UP ON THE STRETCHER WATCHING TV, CALL LIGHT WITHIN REACH.
[2018-09-05 00:05] VITALS: BP 136/81
--- NOTE | 2018-09-05 00:15 | NUR ---
MOVED PATIENT TO ROOM 15 TO FREE UP TRAUMA ROOM, REPORT GIVEN TO RHETT HUA.
[2018-09-05 04:54] LABS: BASOPHILS 0.2 % (0-2); EOSINOPHILS 1.4 % (0-7); HEMATOCRIT 29.6 % (36.0-48.0); HEMOGLOBIN 9.2 g/dL (12-16); IMMATURE GRANULOCYTES 0.2 % (0-5); LYMPHOCYTES 21.1 % (15-50); MCH 28.8 pg (26.0-34.0); MCHC 31.1 g/dL (31.0-37.0); MCV 92.5 fL (80.0-100.0); MEAN PLATELET VOLUME 10.1 fL (7.4-10.4); MONOCYTES 9.8 % (2-11); NEUTROPHILS 67.3 % (40-80); RDW 15.1 % (11.5-14.5); WBC 9.9 10x3/uL (4.8-10.8)
[2018-09-05 05:03] LABS: PLATELET COUNT 155 10x3/uL (130-400)
[2018-09-05 05:14] VITALS: BP 120/66; BMI 31.8
[2018-09-05 05:40] LABS: ALBUMIN 2.6 g/dL (3.4-5.0); ALKALINE PHOSPHATASE 79 U/L (46-116); ALT (SGPT) 25 U/L (10-68); CALCIUM 8.4 mg/dL (8.5-10.1); CARBON DIOXIDE 25.2 mmol/L (21.0-32.0); CHLORIDE - SERUM 97 mmol/L (98-107); CREATINE KINASE 567 UL (21-215); CREATININE - SERUM 1.8 mg/dL (0.6-1.3); POTASSIUM - SERUM 4.5 mmol/L (3.5-5.1); PROTEIN - SERUM 7.8 g/dL (6.4-8.2); SODIUM 133 mmol/L (136-145); UREA NITROGEN 50 mg/dL (7-18); eGFR NON AFRICAN AMERICAN 31 mL/min (90-120)
[2018-09-05 05:41] LABS: BILIRUBIN - TOTAL 0.02 mg/dL (0.2-1.3); CALC OSMOLALITY 280 mosm/kg (275-300); GLUCOSE 141 mg/dL (74-106)
[2018-09-05 05:44] LABS: TROPONIN-I 0.079 ng/mL (0.000-0.060)
--- NOTE | 2018-09-05 06:21 | NUR ---
PT ARRIVED TO FLOOR VIA WHEELCHAIR. ALERT AND ORIENTED. NO SIGNS OF DISTRESS. STATES NO PAIN AT THIS TIME. IV RIGHT FA INFUSING NS @ 125. NO REDNESS OR SWELLING AT INSERTION SITE, DRESSING CDI. O2 1.5L/NC. BREATHING SLIGHTLY LABORED. PROVIDED WATER UPON REQUEST. NO OTHER NEEDS OR COMPLAINTS AT THIS TIME. ENCOURAGED TO CALL W/ ANY NEEDS. BED LOWEST POSITION, SRX2, CHRIS ON. CL IN REACH, WILL CONTINUE TO MONITOR
--- NOTE | 2018-09-05 07:36 | NUR ---
PT ALERT X 4. SLIGHT EXPIRATORY WHEEZE TO LLL, 1.5L O2 PER NC. IV TO LEFT FOREARM, PATENT, DRESSING CLEAN DRY AND INTACT. EXISTING RIGHT BKA, PT FELL AT HOME RECENTLY AND INCISION OPENED, DRESSING CLEAN DRY AND INTACT. NO PAIN THIS MORNING. BED LOW, CALL LIGHT IN REACH, NO OTHER NEEDS AT THIS TIME.
[2018-09-05 08:37] VITALS: BP 117/60
[2018-09-05 10:33] VITALS: BMI 31.7
[2018-09-05 11:58] VITALS: BP 96/48
[2018-09-05 12:38] LABS: % SATURATION 5 % (15-55); IRON 13 ug/dl (35-150); TOTAL IRON BIND CAPACITY 236 ug/dl (260-445); UNSAT IRON BIND CAPACITY 223 ug/dl (150-375)
[2018-09-05 12:55] LABS: CKMB 1.9 U/L (0.0-3.6); CREATINE KINASE 458 UL (21-215)
[2018-09-05 12:56] LABS: TROPONIN-I 0.027 ng/mL (0.000-0.060)
--- NOTE | 2018-09-05 15:14 | MORECARE ---
CASE MANAGEMENT DISCHARGE SUMMARY PATIENT: JUAN J TORIBIO UNIT: [id number] ADM DATE: 09/04/18 AGE: 58 : 60 SEX: F ROOM/BED: D.2202 AUTHOR: CHARLESDOC PHYSICIAN: REFERRING PHYSICIAN: ONI JANG MD DATE OF SERVICE: 09/05/18 Discharge Plan Patient Name: JUAN J TORIBIO Facility: [facility]:[place] : 1960 Planned Disposition: Home Anticipated Discharge Date: Discharge Date: Expected LOS: Initial Reviewer: [email or web address] Initial Review Date: 09/04/2018 Generated: 09/05/18 4:14 pm Comments DCP- Discharge Planning Updated by [email or web address]: Brenda Morales on 09/05/18 2:[address] Patient Name: JUAN J TORIBIO Admission Status: ER Accout number: [id number] Admission Date: 09-04-2018 : 1960 Admission Diagnosis: Attending: ONI JANG Current LOS: 1 Anticipated DC Date: Planned Disposition: Home Primary Insurance: MEDICARE A & B Discharge Planning Comments: CM met with patient to assess discharge planning needs. Patient stated that she lives in [facility] where she lives with her Daughter and plans on returning there at discharge. Her daughter will be the one to drive her home. She is independent with her care at home. She is not currently with a HH. She has used [facility] in the past. She has a cane, hospital bed, walker, crutches at home. She feels safe to return to her home. CM will continue to follow and assist with DC planning as needed. Insurance And Financial Services Agent: Brenda Morales DCPIA - Discharge Planning Initial Assessment Updated by [email or web address]: Brenda Morales on 09/05/18 3:09 pm * Is the patient Alert and Oriented? Yes * How many steps to enter\exit or inside your home? * PCP DR MARTÍNEZ ([place]) * Pharmacy [facility] * Preadmission Environment Home with Family * ADLs Independent * Equipment Cane Crutch Hospital Bed Rolling Walker * List name and contact numbers for known caregivers / representatives who currently or will assist patient after discharge: RHETT (DAUGHTER) * Verbal permission to speak to the caregivers and representatives has been obtained from the patient. N/A * Community resources currently utilized None * Additional services required to return to the preadmission environment? No * Can the patient safely return to the preadmission environment? Yes * Has this patient been hospitalized within the prior 30 days at any hospital? No Patient Name: JUAN J TORIBIO Page [id number] at 1514 All edits/amendments must be made on the electronic document DICTATION DATE: 09/05/181513 CNA HHA: DENYS 09/05/181513 RPT#: [id number] DC DATE: STATUS: ADM IN [facility] [address] [place] [address] END OF REPORT
[2018-09-05 15:16] VITALS: Ht 165.1 cm; Wt 94.4 kg
[2018-09-05 17:19] LABS: APPEARANCE CLEAR (CLEAR); BILIRUBIN NEGATIVE (NEGATIVE); COLOR YELLOW (YELLOW); GLUCOSE NEGATIVE (NEGATIVE); KETONE NEGATIVE (NEGATIVE); NITRITE NEGATIVE (NEGATIVE); PROTEIN TRACE mg/dL (NEGATIVE); SPECIFIC GRAVITY 1.015 (1.005-1.020); UROBILINOGEN NORMAL (NORMAL)
[2018-09-05 17:20] LABS: BACTERIA MODERATE /hpf (NONE SEEN); EPITHELIAL CELLS 0-5 /hpf (0-5); RED CELLS - URINE 0-5 /hpf (0-5); YEAST >1+ /hpf (NONE SEEN)
[2018-09-05 17:31] LABS: UDS - AMPHET NEGATIVE QUAL (NEGATIVE); UDS - BARB NEGATIVE QUAL (NEGATIVE); UDS - BENZO NEGATIVE QUAL (NEGATIVE); UDS - COCAINE NEGATIVE QUAL (NEGATIVE); UDS - OPIATE POSITIVE QUAL (NEGATIVE); UDS - PCP NEGATIVE QUAL (NEGATIVE); UDS - THC NEGATIVE QUAL (NEGATIVE)
[2018-09-05 18:24] LABS: CKMB 2.4 U/L (0.0-3.6); CREATINE KINASE 388 UL (21-215); TROPONIN-I 0.024 ng/mL (0.000-0.060)
--- NOTE | 2018-09-05 19:45 | NUR ---
PT SITTING UP IN BED, NO SIGNS OF DISTRESS. ALERT AND ORIENTED. O2 1.5L/NC. PT STATES NO PAIN AT THIS TIME. RIGHT BKA DRESSING CDI. CHRIS ON. PT UP TO BEDSIDE COMMODE W/ ASSIST TO VOID. IV RIGHT FA INFUSING NS @ 125. NO NEEDS OR COMPLAINTS AT THIS TIME. CL IN REACH, WILL CONTINUE TO MONITOR
[2018-09-05 20:00] VITALS: BP 114/63
--- NOTE | 2018-09-05 21:00 | NUR ---
DR. JANG CALLED W/ ORDERS FOR LOVENOX 1MG/KG DAILY. PT ALREADY RECIEVED 40MG TODAY, ORDERS TO GIVE REMAINING AMOUNT NEEDED. PT WEIGHS 94KG. CALLED PHARMACY AND INFORMED THEM OF CHANGE. PT GIVEN LOVENOX 50MG NOW, NEW ORDER FOR 90MG DAILY PUT IN, DC'D LOVENOX 40MG DAILY.
--- NOTE | 2018-09-05 22:30 | NUR ---
PT PULLED OUT RIGHT FA IV W/ CATHETER TIP INTACT. RESITED 22G IV RIGHT HAND X1 ATTEMPT INFUSING NS @ 125. BS 205, GAVE 8 UNITS PER SS. CHRIS ON. CL IN REACH
[2018-09-05 23:51] LABS: CKMB 2.4 U/L (0.0-3.6); CREATINE KINASE 303 UL (21-215); TROPONIN-I 0.017 ng/mL (0.000-0.060)
[2018-09-06] VITALS: BP 85/58
--- NOTE | 2018-09-06 00:15 | NUR ---
PT SOB W/ PERSISTANT COUGH, RED IN THE FACE ON 3L/NC. CALLED RESP FOR PRN BREATHING TRX. RESP GAVE PRN TRX, PT TOLERATED WELL. BREATHING SLOW AND EVEN. PT STATES PAIN 03/17. GAVE DILAUDID ORDERED. WILL CONTINUE TO MONITOR. CHRIS ON
[2018-09-06 04:00] VITALS: BP 127/54
[2018-09-06 05:20] LABS: BASOPHILS 0.4 % (0-2); EOSINOPHILS 2.2 % (0-7); HEMATOCRIT 28.6 % (36.0-48.0); HEMOGLOBIN 8.6 g/dL (12-16); IMMATURE GRANULOCYTES 0.3 % (0-5); LYMPHOCYTES 24.6 % (15-50); MCH 28.6 pg (26.0-34.0); MCHC 30.1 g/dL (31.0-37.0); MEAN PLATELET VOLUME 10.3 fL (7.4-10.4); MONOCYTES 9.4 % (2-11); NEUTROPHILS 63.1 % (40-80); PLATELET COUNT 143 10x3/uL (130-400); RBC 3.01 10x6/uL (4.00-5.40); RDW 15.1 % (11.5-14.5)
[2018-09-06 05:21] LABS: WBC 6.9 10x3/uL (4.8-10.8)
[2018-09-06 05:38] LABS: ANION GAP 11.4 mmol/L (8-16); CALCIUM 8.6 mg/dL (8.5-10.1); CARBON DIOXIDE 27.7 mmol/L (21.0-32.0); CREATININE - SERUM 1.4 mg/dL (0.6-1.3); POTASSIUM - SERUM 5.1 mmol/L (3.5-5.1)
--- NOTE | 2018-09-06 07:15 | NUR ---
MORNING ASSESSMENT COMPLETE. SEE ASSESSMENT FLOWSHEET FOR FURTHER DETAILS. PT LYING IN BED AAO X4 TO PERSON, PLACE, TIME AND SITUATION. PT ON 3L O2 PER NC- SATS WITHIN NORMAL RANGE ON O2. R LEG BKA DRSG IN PLACE. R HAND NS @125- C/D/I;PATENT. S1 AND S2 HEARD AT AORTIC, PULMONIOC, ERBS, TRICUSPID, AND MITRAL SITES- ON TELEMETRY AND RUNNING SINUS RHYTHM. DENIES NEEDS AT THIS TIME. CL IN REACH. SIDE RAILS UP X3 FOR PATIENT SAFETT
[2018-09-06 08:30] VITALS: BP 122/66
[2018-09-06 09:19] LABS: FOLATE (FOLIC ACID) - SERUM >20.0 ng/mL (>3.0)
--- NOTE | 2018-09-06 09:59 | NUR ---
PT STATES SHE WANTS TO GET UP AND TAKE A SHOWER. I TOLD HER THAT WE COULD GIVE HER A BED BATH- REFUSED THAT. ASKED HER IF I COULD HAVE NURSING STAFF SIT IT BATHROOM WITH HER WHILE SHE TAKES A SHOWER TO MONITOR SAFETY- REFUSED. REFUSED BED ALAR; FILLED OUT BED ALARM REFUSAL SHEET.
[2018-09-06 13:02] VITALS: BP 128/73
--- NOTE | 2018-09-06 15:23 | NUR ---
RESITED PIV TO L FA- 22G X1 ATTEMPT. PT TOLERATED WELL. SITE C/D/I; PATENT.
[2018-09-06 17:14] VITALS: BP 112/80
[2018-09-06 21:44] VITALS: BP 140/69
[2018-09-07 01:37] VITALS: BP 140/80
[2018-09-07 04:41] LABS: BASOPHILS 0.4 % (0-2); EOSINOPHILS 2.1 % (0-7); HEMATOCRIT 27.9 % (36.0-48.0); HEMOGLOBIN 8.5 g/dL (12-16); IMMATURE GRANULOCYTES 0.4 % (0-5); MCHC 30.5 g/dL (31.0-37.0); MCV 95.2 fL (80.0-100.0); MONOCYTES 12.5 % (2-11); NEUTROPHILS 58.6 % (40-80); PLATELET COUNT 161 10x3/uL (130-400); RBC 2.93 10x6/uL (4.00-5.40); RDW 15.3 % (11.5-14.5); WBC 7.1 10x3/uL (4.8-10.8)
[2018-09-07 04:48] VITALS: BP 121/59
[2018-09-07 04:50] LABS: ANION GAP 13.9 mmol/L (8-16); CALCIUM 8.5 mg/dL (8.5-10.1); CREATININE - SERUM 1.3 mg/dL (0.6-1.3); POTASSIUM - SERUM 4.9 mmol/L (3.5-5.1)
--- NOTE | 2018-09-07 07:15 | NUR ---
MORNING ASSESSMENT COMPLETE. SEE ASSESSMENT FLOWSHEET FOR FURTHER DETAILS. PT LYING IN BED AAO X4 TO PERSON, PLACE, TIME AND SITUATION. REPORT PAIN LEVEL OF 8(0-10)- WILL GIVE PAIN WHEN TIME IS DUE. R BKA- DRSG IN PLACE AND NO DRAINAGE NOTED TO INCISION SITES. BSC AT BEDSIDE. NO FURTHER NEEDS AT THIS TIME. CL IN REACH. SIDE RAILS UP X3 FOR PATIENT SAFETY.
--- NOTE | 2018-09-07 07:18 | NUR ---
PATIENT IN BED WITH O2 VIA N/C THAT SHE HAS TAKEN OFF MULTABLE TIMES THIS SHIFT. EDCATED EACH TIME THAT IT IS NESSARY TO KEEP IT ON TO KEEP HER O2 ABOVE 90. THAT WILL HELP WITH THE ANXIETY. ALARM REPLACED IN BED IT HAD BEEN TAKEN OFF AND PUT IN THE FLOOR. CALL LIGHT IN REACH.
[2018-09-07 08:30] VITALS: BP 141/75
--- NOTE | 2018-09-07 11:04 | NUR ---
NUTRITION F/U CHART REVIEWED, PT VISIT. TOLERATING RENAL ADA DIET WITH 75% INTAKE BREAKFAST. WILL CONTINUE TO PROVIDE DIET, MONITOR PO INTAKE. RD FOLLOWING
[2018-09-07 12:30] VITALS: BP 123/55
[2018-09-07 16:30] VITALS: BP 120/60
--- NOTE | 2018-09-07 21:51 | NUR ---
ALERT AND ORENTED ABLE TO VOICE NEEDS AND WANTS TO STAFF. NS AT 50ML/HR TO MIDLINE TO LEFT ARM. REFUSED SCD, UP WALKING OFTEN CALL LIGHT IN REACH WHEN IN ROOM
--- NOTE | 2018-09-07 22:04 | NUR ---
PATIENT HAD CALL LIGHT ON AND YELLING SHE STAED THAT SHE WANTED THE OTHER REMOTE FOR THE TV, STATED THAT SHE DIDN'T WANT TO WAIT ANY LONGER. STATED I PUT MY SELF TO THE CHAIR AT BEDSIDE AND THEN LOWERED MYSELF TO THE FLOOR . WHEN ASK IF SHE HIT OR BUMPED ANYTHING SHE STATED NO ASSISMENT DONE NO INJURY NOTED, PATIENT STATED HE DID NOPT HURT HERSELF OR HITOR BUMP ANYTHING. PATIEN WAS NOTED TO BED SOB HAD REMOVED O2, O2 RELPACED ENCOUREGED TO DEEP BREATHE RELAX, ASSISTED TO BED WITH STAFF X3 FOR SAFETY. PATIENT EDUCATED NOT TO SELF TRANSFER , STAFF WILL COME AND ASSIST BUT AT TIMES WE MUST FINISH WITH ANOUTHER PATIENT BEFOR WE CAN COM TO HER SO PLEASE BE PATIENT WITH US. UTILITY BAG ASSEMBLER CALLED AND INFORMED , CALL TO DR. JANG OFFICE RETRUN CALL FROM ZULEMA MCCARTY NEW ORDERS AT THIS TIME.
--- NOTE | 2018-09-07 22:17 | NUR ---
CALL TO LADONNA TORIBIO (SPOUSE) AT [phone] TO INFORM, PHONE NOT TAKING CALLS AT THIS TIME
[2018-09-08 00:55] VITALS: BP 89/64
[2018-09-08 05:24] LABS: BASOPHILS 0.5 % (0-2); EOSINOPHILS 1.8 % (0-7); HEMATOCRIT 26.5 % (36.0-48.0); IMMATURE GRANULOCYTES 0.7 % (0-5); LYMPHOCYTES 22.7 % (15-50); MCH 28.5 pg (26.0-34.0); MCHC 30.2 g/dL (31.0-37.0); MCV 94.3 fL (80.0-100.0); MEAN PLATELET VOLUME 9.5 fL (7.4-10.4); MONOCYTES 14.2 % (2-11); NEUTROPHILS 60.1 % (40-80); PLATELET COUNT 142 10x3/uL (130-400); RBC 2.81 10x6/uL (4.00-5.40); RDW 15.2 % (11.5-14.5)
[2018-09-08 05:30] LABS: ANION GAP 17.2 mmol/L (8-16); CALCIUM 8.5 mg/dL (8.5-10.1); CARBON DIOXIDE 21.4 mmol/L (21.0-32.0); CREATININE - SERUM 1.5 mg/dL (0.6-1.3); POTASSIUM - SERUM 4.6 mmol/L (3.5-5.1)
[2018-09-08 05:35] VITALS: BP 151/73
--- NOTE | 2018-09-08 08:25 | NUR ---
PT RESTING IN BED, DISPLAYING MILD ANXIETY, VOICING SOB. 02 @ 2L NC IN PLACE, ENCOURAGED DEEP BREATHS. PT BEGAN CALMING DOWN, BREATHING BECOME LESS LABORED. REPORTS PAIN 6/10, PARTICULARLY WHEN COUGHING. DISCUSSED TIME OF NEXT PRN DOSE OF MEDICATION. PT VOICES UNDERSTANDING. IV TO RIGHT FOREARM WITH NS @ 100ML/HR INFUSING VIA PUMP. SITE WITHOUT REDNESS OR EDEMA. DENIES FURTHER NEEDS AT THIS TIME. CL WITHIN REACH. ENCOURAGED TO CALL WITH NEEDS. CONTINUE TO MONITOR.
[2018-09-08 09:04] VITALS: BP 127/58
[2018-09-08 12:33] VITALS: BP 126/69
--- NOTE | 2018-09-08 13:28 | NUR ---
PT LYING IN BREAD STATING "I CANT BREATH VERY WELL" NASAL CANNULA LYING IN BED. REPLACED O2 @ 2L. EDUCATED REGARDING TAKING SLOW DEEP BREATHS THROUGH HER NOSE AND OUT THROUGH HER MOUTH. PT BEGAN CALMING DOWN, DISPLAYING LESSENED ANXIETY. REPORTS PAIN 9/10 AT THIS TIME. ULTRAM ADMINISTERED PER MD ORDERS. DENIES FURTHER NEEDS AT THIS TIME. CL WITHIN REACH. WILL CONTINUE TO MONITOR.
[2018-09-08 16:37] VITALS: BP 151/72
--- NOTE | 2018-09-08 19:55 | NUR ---
PT RESTING IN BED. ALERT AND ORIENTED. NO SIGNS OF DISTRESS. BREATHING EVEN AND UNLABORED. PT STATES NO PROBLEMS AT THIS TIME. IV SITE RT FA DRESSING CLEAN DRY AND INTACT. NO SIGNS OF INFECTION. 2LO2 NASAL CANNULA. BOWEL SOUNDS ACTIVE. RT BELOW THE KNEE AMPUTAION. SKIN CLEAN DRY AND INTACT. NO LOWER LEG SWELLING PRESENT. WILL CONTINUE PLAN OF CARE. CALL LIGHT IN REACH.
[2018-09-08 20:00] VITALS: BP 128/48
[2018-09-09] VITALS: BP 109/58
--- NOTE | 2018-09-09 01:47 | NUR ---
ASSESSED, PT AWAKE AND COMPLAINING OF NOT BEING ABLE TO BREATHE. PANICING, NURSE AT THE BEDSIDE AND RESP CALLED FOR TREATMENT. PT CALMED DOWN AFTER STARTING TREATMENT.
[2018-09-09 03:00] VITALS: BP 110/61
[2018-09-09 05:51] LABS: BASOPHILS 0.2 % (0-2); EOSINOPHILS 1.4 % (0-7); HEMATOCRIT 26.3 % (36.0-48.0); HEMOGLOBIN 8.1 g/dL (12-16); IMMATURE GRANULOCYTES 0.7 % (0-5); MCH 28.9 pg (26.0-34.0); MCHC 30.8 g/dL (31.0-37.0); MCV 93.9 fL (80.0-100.0); MONOCYTES 12.6 % (2-11); NEUTROPHILS 66.1 % (40-80); PLATELET COUNT 144 10x3/uL (130-400); RDW 15.4 % (11.5-14.5); WBC 5.5 10x3/uL (4.8-10.8)
[2018-09-09 06:01] LABS: ANION GAP 13.6 mmol/L (8-16); CALCIUM 8.4 mg/dL (8.5-10.1); CARBON DIOXIDE 25.3 mmol/L (21.0-32.0)
[2018-09-09 06:05] LABS: CREATININE - SERUM 1.1 mg/dL (0.6-1.3); POTASSIUM - SERUM 3.9 mmol/L (3.5-5.1)
--- NOTE | 2018-09-09 08:20 | NUR ---
PT RESTING IN BED WITH EYES CLOSED. OPENS EYES WHEN NAME CALLED. RESP EVEN AND UNLABORED. O2 @ 3L NC IN PLACE. NO ANXIETY NOTED AT THIS TIME. SALINE LOC TO RIGHT FOREARM, SITE WITHOUT REDNESS OR EDEMA, EASILY FLUSHES. DENIES PAIN AT THIS TIME. DENIES FURTHER NEEDS AT THIS TIME. CL WITHIN REACH. ENCOURAGED TO CALL WITH NEEDS. PT REFUSES USE OF SCD. WILL CONTINUE POC
[2018-09-09 11:03] VITALS: BP 163/81
--- NOTE | 2018-09-09 12:55 | EC ---
PATIENT:JUAN J TORIBIO DATE OF SERVICE: 09/04/18 SEX: F MEDICAL RECORD: [id number] DATE OF : 60 LOCATION:[facility] AGE OF PATIENT: 58 ADMISSION DATE: 09/04/18 REFERRING PHYSICIAN: INTERPRETING PHYSICIAN: MARKUS MARIE MD ECHOCARDIOGRAM REPORT ECHO CHARGES 4 ECHO COMPLETE Date: 09/06/18 CLINICAL DIAGNOSIS: CHF ECHOCARDIOGRAPHIC MEASUREMENTS (adult normal given) AC root (d.<3.7cm) 2.9 cm LV Septum d (<1.2 cm> 1.0 cm Valve Excursion 1.3 cm LV Septum (systole) 1.4 cm Left Atria (s.<4.0cm> 3.4 cm LVPW d(<1.2cm) 1.4 cm RV (d.<2.3cm) cm LVPW (sytole) 1.6 cm LV diastole(<5.6CM) 5.4 cm MV E-F(>70mm/sec) cm LV systole 4.2 cm LVOT Diameter 1.3 cm MV exc.(>10mm) cm Est.ejection fraction (50-75%) % DOPPLER: LVIT cm/sec A 108 cm/sec E 117 cm/sec LA cm/sec RVSP 21.7 mmHg LVOT 136 cm/sec AOP1/2T m/s Asc. Ao 203 cm/sec RVOT 60 cm/sec RA cm/sec PA 87 cm/sec AV Gradient Peak 16.6 mmHg AV Mean 10.4 mmHg AV Area 0.9 cm MV Gradient Peak 9.7 mmHg MV Mean 6.0 mmHg MV Area cm COMMENTS: Center Administrator: Cyrus STEWARTASHLEE SERENA Diesel Stationary Engineer: 3 Dr. Penn TAPE# PACS Pericardial Effusion N DATE OF SERVICE: Adequate 2-D, color flow and spectral Doppler, and M-mode. Borderline LVH. LV internal dimension is normal. Wall motion is normal. EF is greater than 55%. Aortic valve sclerosis without stenosis by Doppler interrogation. Left atrium is normal at 3.4 cm. Mitral valve shows no prolapse. Trace MR. Right-sided chambers are normal. Moderate TR. TRANSINT:[id number] Voice Confirmation ID: [id number] DOCUMENT ID: [id number] ECHOCARDIOGRAM REPORT [id number] JUAN J TORIBIO MARKUS MARIE MD at 1255 CC: [id number] DICTATION DATE: 09/06/18 1408 SINGEING TORCH OPERATOR: 09/06/18 1845 ADM IN [place] [id number] [place] [address]
[2018-09-09] MEDS ORDERED: LEVAQUIN750 MG PO (13:16)
[2018-09-09] MEDS ORDERED: ELIQUIS5 MG PO (13:23)
--- NOTE | 2018-09-09 14:15 | NUR ---
PT SALINE LOCK TO RIGHT FOREARM D/C'D FOR DISCHARGE. CATH INTACT, DRESSING PLACED. DISCHARGE INSTRUCTIONS GIVEN INSTRUCTING FOLLOW UP APPOINTMENTS AND MEDICATIONS CALLED INTO PHARMACY OF CHOICE. PT TAKEN OUT VIA W/C TO PRIVATE VEHICLE WITH ALL PERSONAL POSESSIONS.
[2018-09-09 14:55] VITALS: BP 134/56
--- NOTE | 2018-09-11 10:00 | MORECARE ---
CASE MANAGEMENT DISCHARGE SUMMARY PATIENT: JUAN J TORIBIO UNIT: [id number] ADM DATE: 09/04/18 AGE: 58 : 60 SEX: F ROOM/BED: D.2202 AUTHOR: CHARLES,DOC PHYSICIAN: REFERRING PHYSICIAN: ONI JANG MD DATE OF SERVICE: 09/11/18 Discharge Plan Patient Name: JUAN J TORIBIO Facility: [facility]:[place] : 1960 Planned Disposition: Home Anticipated Discharge Date: Discharge Date: 09/09/2018 Expected LOS: 0 Initial Reviewer: [email or web address] Initial Review Date: 09/04/2018 Generated: 09/11/18 11:00 am Comments DCP- Discharge Planning Updated by [email or web address]: Brenda Morales on 09/05/18 2:[address] Patient Name: JUAN J TORIBIO Admission Status: ER Accout number: [id number] Admission Date: 09-04-2018 : 1960 Admission Diagnosis: Attending: ONI JANG Current LOS: 1 Anticipated DC Date: Planned Disposition: Home Primary Insurance: MEDICARE A & B Discharge Planning Comments: CM met with patient to assess discharge planning needs. Patient stated that she lives in [facility] where she lives with her Daughter and plans on returning there at discharge. Her daughter will be the one to drive her home. She is independent with her care at home. She is not currently with a HH. She has used [facility] in the past. She has a cane, hospital bed, walker, crutches at home. She feels safe to return to her home. CM will continue to follow and assist with DC planning as needed. Hydrogen Treater: Brenda Morales DCPIA - Discharge Planning Initial Assessment Updated by [email or web address]: Brenda Morales on 09/05/18 3:09 pm * Is the patient Alert and Oriented? Yes * How many steps to enter\exit or inside your home? * PCP DR MARTÍNEZ (REND[facility]) * Pharmacy [facility] * Preadmission Environment Home with Family * ADLs Independent * Equipment Cane Crutch Hospital Bed Rolling Walker * List name and contact numbers for known caregivers / representatives who currently or will assist patient after discharge: RHETT (DAUGHTER) * Verbal permission to speak to the caregivers and representatives has been obtained from the patient. N/A * Community resources currently utilized None * Additional services required to return to the preadmission environment? No * Can the patient safely return to the preadmission environment? Yes * Has this patient been hospitalized within the prior 30 days at any hospital? No Last DP export: 09/05/18 2:14 p Patient Name: JUAN J TORIBIO Page [id number] at 1000 All edits/amendments must be made on the electronic document DICTATION DATE: 09/11/18 1000 STATE MANAGER: DENYS 09/11/18 1000 RPT#: [id number] DC DATE:09/09/18 STATUS: DIS IN [facility] [address] [place] [address] END OF REPORT
== END 2018-09-09 15:25 | disposition home or self-care (01) | DRG 177 ==
LOC: D.ER 12:54 → D.EDHOLD 14:29 → D.MS 14:29 → D.EDHOLD 09-05 01:21 → D.MS 09-05 05:07
PROVIDERS: Family Medicine; ADMIT Internal Medicine Nephrology
DX: J69.0 Pneumonitis due to inhalation of food and vomit (principal); J96.21 Acute and chronic respiratory failure with hypoxia; N17.9 Acute kidney failure, unspecified; N39.0 Urinary tract infection, site not specified; I82.432 Acute embolism and thrombosis of left popliteal vein; E11.22 Type 2 diabetes mellitus with diabetic chronic kidney disease; N18.3 Chronic kidney disease, stage 3 (moderate); I50.9 Heart failure, unspecified; I25.10 Atherosclerotic heart disease of native coronary artery without angina pectoris; J44.9 Chronic obstructive pulmonary disease, unspecified; K21.9 Gastro-esophageal reflux disease without esophagitis

== ENCOUNTER 2020-12-07 21:15 | Observation (INO) | payer MEDICARE, MEDICAID ==
--- NOTE | ~2020-12-07 | HEMODYNAMI ---
PATIENT:JUAN J TORIBIO MEDICAL RECORD: [id number] : 60 [facility] AD[facility]ION DATE: 12/07/20 Generatedon::55 Patient name: JUAN J TORIBIO Patient #: [id number] : 1960 Date of study: 12/08/2020 Page: Of Hemodynamic Procedure Report Patient Data Patient Demographics Procedure consent was obtained First Name: JUAN J Gender: Female Last Name: MALU : 1960 Patient #: [id number] Age: 60 year(s) Race: SSN: [id number] Additional ID: [id number] Contact details [address]: [address] [place] [address] State: [place] City: [place] Zip code: [address] Past Medical History Allergies Allergen Reaction Date Comments Reported Other allergy 04/26/2017 Aleve, Hydrocodone Admission Admission Data Admission Date: 12/07/2020 Admission Time: 21:15 Arrival Date: 12/08/2020 Arrival Time: 0:00 Admit Source: Other Insurance Payor: Medicare Room #: D.2118 [facility] #: [id number] Height (in.): 65 Height (cm.): 165.1 Procedure Procedure Types Cath Procedure Diagnostic Procedure C [facility] w/Coronaries FFR/IVUS FFR Initial Sedation Charges Moderate Sedation 25-39 minutes PCI Procedure Hemochron ACT Test PTCA PTCA Initial Procedure Description Procedure Date Procedure Date: 12/08/2020 Procedure Start Time: 9:18 Procedure End Time: 9:47 Procedure Staff Name Function Edmund Guardado MD Performing Physician Lillian Velazquez RT Monitor Syed Martinez RN Nurse Ana King RT Scrub Caroline Araya RN Nurse Procedure Data Cath Procedure Fluoroscopy Diagnostic fluoroscopy Total fluoroscopy Time: 8.5 time: 8.5 min min Diagnostic fluoroscopy Total fluoroscopy dose: 987 dose: 987 mGy mGy Contrast Material Contrast Material Type Amount (ml) Isovue 300 108 Entry Location Entry Primary Successful Side Size Upsize Upsize Entry Closure Succes sful Closure Location (Fr) 1 (Fr) 2 (Fr) Remarks Device Remarks Femoral Right 5 Fr 6 Fr artery Short Estimated blood loss: 10 ml Diagnostic catheters Device Type Used For End Catheter Placement MULTIPACK JL 4.0 5Fr Procedure catheter MULTIPACK 3DRC 5Fr Procedure catheter MULTIPACK Pigtail 5 Fr Ventriculography catheter Procedure Complications No complications Procedure Medications Medication Administration Route Dosage Oxygen etCO2 Nasal cannula 2 l/min Lidocaine 2% added to field 20 Heparin Flush Bag added to field 2 bags (1000units/500ml NS) 0.9% NaCl I.V. 100 ml/hr Versed I.V. 0.5 mg Heparin Bolus I.V. 5000 units Integrilin (Bolus I.V. 9 ml 2mg/ml) Versed I.V. 0.5 mg Fentanyl I.V. 50 mcg 0.9% NaCl I.V. bolus 250 ml Plavix P.O. 600 mg Hemodynamics Rest Heart Rate: 91 (bpm) Pressure Samples Time Site Value (mmHg) Purpose Heart Use Rate(bpm) 9:22 LV 101/24,26 Snapshot 91 Gradients Valve Time Site Site Mean SEP/DFP Peak To Heart Use 1 2 (mmHg) (sec/min) Peak Rate (mmHg) (bpm) Aortic 9:22 LV AO 93 Snapshots Pre Cath Intra NCS Post Cath Vital Signs Time Heart Resp SPO2 etCO2 NIBP (mmHg) Rhythm Pain Sedation Rate (ipm) (%) (mmHg) Status Level (bpm) 9:13:40 94 10 98 0 97/85(93) NSR 0 (11) 9(A) , No pain 9:18:39 92 10 96 0 105/74(82) NSR 0 (11) 9(A) , No pain 9:22:43 95 11 93 0 96/74(89) NSR 0 (11) 9(A) , No pain 9:26:47 93 10 91 0 105/92(104) NSR 0 (11) 9(A) , No pain 9:30:56 92 10 97 0 81/71(78) NSR 0 (11) 9(A) , No pain 9:34:54 98 11 98 0 91/79(87) NSR 0 (11) 9(A) , No pain 9:44:58 96 11 99 0 104/84(102) NSR 0 (11) 10(A) , No pain Medications Time Medication Route Dose Verified Delivered Reason Notes Effectiveness by by 9:05:08 Oxygen etCO2 2 Edmund Syed used for Nasal l/min St Eh Martinez RN procedure cannula 9:05:15 Lidocaine 2% added 20ml Edmund Edmund for local to vial [facility] anesthetic field MD VIGIL 9:05:21 Heparin Flush added 2 Edmund Edmund used for Bag to bags [facility] procedure (1000units/500ml field MD VIGIL NS) 9:05:31 0.9% NaCl I.V. 100 Edmund Syed Per physician ml/hr St Eh Martinez RN, MD 9:09:30 Versed I.V. 0.5 Edmund Syed for sedation mg St Eh Martinez RN, MD 9:26:23 Heparin Bolus I.V. 5000 Edmund Syed for verifi ed units St Eh Martinez RN anticoagulation per MD Caroline RN 9:27:07 Versed I.V. 0.5 Edmund Syed for sedation mg St Eh Martinez RN, MD 9:27:14 Fentanyl I.V. 50 Edmund Syed for sedation mcg St Eh Martinez RN, MD 9:29:19 Integrilin I.V. 9 ml Edmund Syed for wasted 1 (Bolus 2mg/ml) St Eh Martinez RN antiplatelet ml of MD therapy vial 9:31:21 0.9% NaCl I.V. 250 Edmund Syed Per physician bolus ml St Eh Martinez RN, MD 9:42:59 Plavix P.O. 600 Edmund Syed for mg St Eh Martinez RN antiplatelet MD therapy Procedure Log Time Note 8:51:19 Arrival Date: 12/08/2020 12:00:00 AM 8:51:28 Admit Source: Other 8:53:05 Insurance Payor : Medicare 8:53:22 Patient Height : 65 inches 8:57:16 Procedure Status Urgent Heart Cath (IP). 8:57:21 Ana Counts RT(R) sent for patient. Start room use. 8:57:22 Time tracking: Regular hours (M-F 7:00 - 5:00) 8:57:28 Plan of Care:Hemodynamics will remain stable., Cardiac rhythm will remain stable., Comfort level will be maintained., Respiratory function will remain adequate., Patient/ family verbilizes understanding of procedure., Procedure tolerated without complication., Recovers from procedure without complications.. 8:57:38 Patient received from Pre/Post Procedure Room to CCL 1 Alert and oriented. Tansferred to table in Supine position. 8:57:42 Signed procedure consent form obtained from patient. 8:57:44 Warm blankets applied, and casimiro hugger turned on for patient comfort. 8:57:44 Correct patient and procedure confirmed by team. 8:57:45 ECG and BP/O2 sat monitors applied to patient. 8:57:54 Snore? Yes 8:58:04 H&P Date Dictated: 12/07/2020 Within 30 days and on chart., H&P Addendum completed by physician on day of procedure. (MUST COMPLETE FOR ALL OUTPATIENTS). 8:58:19 Pre-procedure instructions explained to patient. 8:58:23 Family unavailable. 8:58:34 Is the patient allergic to Iodine/contrast media? No. 8:58:35 Was the patient premedicated? Yes 8:58:37 Is patient on blood thinner?Yes 8:58:41 ACC The patient was administered the following blood thiners within the last 24 hours: ACCLovenox 8:58:51 Patient diabetic? Yes. 8:58:54 If diabetic: On Metformin? No 8:59:03 Airway obstruction? Yes COPD 8:59:14 Patient pain scale 0/10 ?. 8:59:31 IV patent on arrival in left forearm with 0.9% NaCl at KVO. 8:59:35 Lab results completed and on chart. 8:59:41 Right groin area was prepped with chlora-prep and draped in sterile fashion 8:59:42 Alarms reviewed by R. N. 8:59:43 Sharps counted by scrub and verified by R.N. 9:01:50 Physician arrived 9:05:08 Oxygen 2 l/min etCO2 Nasal cannula was administered by Syed Martinez RN; used for procedure; Verbal order read back and verified. 9:05:15 Lidocaine 2% 20ml vial added to field was administered by Edmund Guardado MD; for local anesthetic; Verbal order read back and verified. 9:05:21 Heparin Flush Bag (1000units/500ml NS) 2 bags added to field was administered by Edmund Guardado MD; used for procedure; Verbal order read back and verified. 9:05:31 0.9% NaCl 100 ml/hr I.V. was administered by Syed Martinez RN; Per physician; Verbal order read back and verified. 9:05:33 Vital chart was started 9:07:57 --------ALL STOP TIME OUT------ 9:08:01 Final Timeout: patient, procedure, and site verified with staff and physician. All members of the team are in agreement. 9:08:04 Right groin site verified by team. 9:08:08 Fire Safety Assessment: A--An alcohol-based skin anteseptic being used preoperatively., C--Open oxygen or nitrous oxide is being used., D--An ESU, laser, or fiber-optic light is being used. 9:08:15 Physical assessment completed. ASA score P 3 - A patient with severe systemic disease as per Edmund Guardado MD. 9:09:30 Versed 0.5 mg I.V. was administered by Syed Martinez RN; for sedation; Verbal order read back and verified. 9:09:39 Pt states weight 220 lb 9:18:16 Sedation plan: IV Moderate Sedation Medication:Versed, Fentanyl 9:18:23 Procedure started. 9:18:23 Full Disclosure recording started 9:18:28 Local anesthetic to right femoral artery with Lidocaine 2% by Edmund Guardado MD.INITIAL ACCESS ONLY 9:18:47 A 5 Fr sheath was inserted into the Right Femoral artery 9:18:56 Use device set Femoral Dx 9:19:15 ACIST Syringe (54857) opened to sterile field. 9:19:15 Bag Decanter (2002) opened to sterile field. 9:19:16 Medline Cath Pack ([id number]) opened to sterile field. 9:19:17 ACIST Hand Control (30001) opened to sterile field. 9:19:18 ACIST Manifold (21175) opened to sterile field. 9:19:18 DIAGNOSTIC Multipack 5Fr catheter set (UW0914) opened to sterile field. 9:19:23 SHEATH 5FR [place] (GWZ887) opened to sterile field. 9:19:24 EMERALD Guide Wire (995-720) opened to sterile field. 9:19:37 A MULTIPACK JL 4.0 5Fr catheter was advanced over the wire and used for Procedure. 9::42 LCA angiography performed. 9::56 Catheter removed. 9:22:04 A MULTIPACK 3DRC 5Fr catheter was advanced over the wire and used for Procedure. 9:22:08 RCA angiography performed. 9:22:20 Catheter removed. 9::27 A MULTIPACK Pigtail 5 Fr catheter was advanced over the wire and used for Ventriculography. 9:22:35 LV angiography performed. 9:22:39 LV gram done using WOO 9:22:52 EF : 55 % 9::57 Catheter removed. 9:25:19 Sheath upsized to a 6 Fr Short. 9:25:40 6 Fr JL4 guide catheter was inserted over the wire 9:26:23 Heparin Bolus 5000 units I.V. was administered by Syed Martinez RN; for anticoagulation; verified per JAVID Velazquez Verbal order read back and verified. 9:26:55 SHEATH 6FR [place] (IPO508) opened to sterile field. 9:26:56 INFLATOR Merit BasixCompak (RC9320) opened to sterile field. 9:26:58 GUIDE 6FR JL 4.0 catheter ([id number]) opened to sterile field. 9:26:59 [place] OmniWire (18848) opened to sterile field. 9:27:07 Versed 0.5 mg I.V. was administered by Syed Martinez RN; for sedation; Verbal order read back and verified. 9:27:14 Fentanyl 50 mcg I.V. was administered by Syed Martinez RN; for sedation; Verbal order read back and verified. 9:29:08 omni wire advanced. 9:29:19 Integrilin (Bolus 2mg/ml) 9 ml I.V. was administered by Syed Martinez RN; for antiplatelet therapy; wasted 1 ml of vial Verbal order read back and verified. 9:31:21 0.9% NaCl 250 ml I.V. bolus was administered by Syed Martinez RN; Per physician; Verbal order read back and verified. 9:37:14 Inflate balloon Inflation number: 1 A EUPHORA 3.0 x 15 Balloon ([id number]) was prepped and advanced across the Prox CX , then inflated to 10 KRISTAL for 0:11 (min:sec) . 9:38:00 Inflation number: 1 The EUPHORA 3.0 x 15 Balloon ([id number]) was reinflated across the Mid CX , to 10 KRISTAL for 0:08 (min:sec) . 9:39:47 Tegaderm 4 x 4 (1626W) opened to sterile field. 9:39:50 EXOSEAL 6Fr (EX600) opened to sterile field. 9:40:10 mCirc lesion measured at .96 with IFR 9:40:16 Wire removed. 9:40:18 Guide Catheter removed. 9:40:42 Procedure ended.(Physican Out) 9:41:55 Fluoroscopy time 08.50 minutes. 9:42:59 Plavix 600 mg P.O. was administered by Syed Martinez RN; for antiplatelet therapy; Verbal order read back and verified. 9:43:09 Fluoroscopy dose: 987 mGy 9:43:09 Flurop Dose total: 987 9:43:17 Dose Area Product 98920 mGy/cm. 9:43:26 Contrast amount:Isovue 300 108ml. 9:43:29 Sharps counted by scrub and verified by R.N. 9:43:37 Insertion/operative site no bleeding no hematoma. 9:43:49 Estimated blood loss: 10 ml 9:43:52 Post procedure instruction explained to patient.Patient verbalizes understanding. 9:44:18 ACT drawn and resulted at 233 seconds. (normal therapeutic range 180-240 seconds). 9:44:23 Procedure type changed to Cath procedure, Diagnostic procedure, C, [facility] w/Coronaries, FFR/IVUS, FFR Initial, Sedation Charges, Moderate Sedation 25-39 minutes, PCI procedure, Hemochron ACT Test, PTCA, PTCA Initial 9:45:12 Procedure and supply charges have been captured, reviewed, submitted and are correct. 9:47:11 Procedure Complication : No complications 9:47:15 Vital chart was stopped 9:47:19 [facility] Findings: MVD- PCI performed (see procedure note) 9:47:21 Operative report dictated upon procedure completion. 9:47:22 See physician's report for complete and final results. 9:47:30 Report given to [facility]. 9:47:34 Patient transfered to [facility] with Bed. 9:47:36 Procedure ended. 9:47:36 Full Disclosure recording stopped 9:47:40 End room use (Document Last) 9:48:12 ACC-PCI Only Patient was given prescriptions, or instructed by Edmund Guardado MD to start/continue the following medications upon discharge: Plavix Intervention Summary Intervention Notes Time ActionType Lesion and Equipment Action# Pressure Duration Attributes Used 9:37:14 Inflate Prox CX EUPHORA 1 10 00:12 balloon 3.0 x 15 Balloon ([id number]) 9:38:00 Reinflate Mid CX EUPHORA 1 10 00:08 balloon 3.0 x 15 Balloon ([id number]) Device Usage Item Name Manufacture Quantity Catalog Hospital Part Current Minimal L ot# / Number Charge Number Stock Stock Serial# Code ACIST Acist 1 47516 787773 926842 685460 20 Syringe Medical (65954) Systems Inc Bag Microtek 1 087706 76561 349078 5 Decanter Medical Inc. () Medline Medline 1 [id number] 769832 99584 152555 5 Cath Pack ([id number]) ACIST Hand Acist 1 43305 465615 874081 170167 5 Control Medical (25820) Systems Inc ACIST Acist 1 01388 278368 441364 145797 5 Manifold Medical (93568) Systems Inc DIAGNOSTIC Cardinal 1 CM4293 416895 42769 483121 30 Multipack Health 5Fr catheter set (BK9914) SHEATH 5FR Terumo 1 FOB794 836476 141019 390185 5 [place] (MXL913) EMERALD Cardinal 1 502-455 806105 063892 435032 5 Guide Wire Health (502-455) MULTIPACK Cardinal 1 936063 5 JL 4.0 5Fr Health catheter MULTIPACK Cardinal 1 962798 5 3DRC 5Fr Health catheter MULTIPACK Cardinal 1 975110 5 Pigtail 5 Health Fr catheter SHEATH 6FR Terumo 1 FEA762 072062 566526 976821 40 [place] (KOR009) INFLATOR Merit 1 BT6106 342082 011734 400056 15 Malang Studio Medical BasixCompak (UD7691) GUIDE 6FR Medtronic 1 II0PR41 572581 58282 868099 1 JL 4.0 catheter (SS6LN26) Waterloo Waterloo 1 9669148 147632 78747 9953 5 OmniWire (38868) EUPHORA 3.0 Medtronic 1 [id number] 479160 371458 233782 5 2 [id number] x 15 Balloon ([id number]) Tegaderm 4 3M 1 1626W 786738 040474 739696 5 x 4 (1626W) EXOSEAL 6Fr Cardinal 1 EX600 247323 049633 665338 10 (EX600) Health Signature Audit [place] Stage Time Signature Unsigned Intra-Procedure 12/08/2020 Lillian Velazquez 9:53:41 AM RT(R) Intra-Procedure 12/08/2020 Caroline Araya RN 9:55:10 AM Intra-Procedure 12/08/2020 Edmund Abad 9:55:45 AM Eh VIGIL [place] [id number] [facility] [place] [address]
[~2020-12-07 21:15] MED LIST changes: +ELIQUIS5 MG PO; +LEVAQUIN750 MG PO
[2020-12-07] MEDS ORDERED: CETIRIZINE HCL5 M1 PO (21:43)
[2020-12-07] MEDS ORDERED: CYMBALTA30 MG PO (21:45)
--- NOTE | 2020-12-07 21:45 | NUR ---
RECEIVED FROM Sonia RENDON&ASHER, MEDS AND HISTORY COMPLETE, HAS INSULIN PUMP,CHECK OWNS BS, HAS CHRIS, CAN TRANSFER WITH ASSIST, BS WAS 35, PROVIDED SNACKS, PLACED ON TELEMTRY, RESITED IV-LAC, WILL CONTINUE PLAN OF CARE
[2020-12-07] MEDS ORDERED: NEURONTIN 300300 MG PO (21:46)
[2020-12-07] MEDS ORDERED: PROTONIX40 MG PO (21:48)
[2020-12-07] MEDS ORDERED: BUSPAR10 MG PO (21:49)
[2020-12-07] MEDS ORDERED: BENADRYL25 MG PO (21:50)
[2020-12-07] MEDS ORDERED: NOVOLOG100 UNIT/1 (21:59)
[2020-12-08] VITALS (9 sets, daily range): BP systolic 93–154; BP diastolic 53–89
--- NOTE | 2020-12-08 00:18 | NUR ---
BS IS NOW 95
[2020-12-08 02:19] LABS: CKMB 4.5 U/L (0.0-3.6); CREATINE KINASE 128 UL (21-215)
[2020-12-08 02:30] LABS: TROPONIN-I 0.626 ng/mL (0.000-0.060)
--- NOTE | 2020-12-08 07:24 | NUR ---
INITIAL ROUNDS- PT IN BED, C/O PAIN, INFORMED PT THAT SHE CANNOT HAVE ANY PAIN MEDICATION UNTIL 819. PT A/O X4, RESP EVEN AND NONLABORED ON 2L NC. LT AC IV SL AND WITH SWAB CAP ON. PT NPO FOR CARDIOLOGY CONSULT. PT DENIES ANY OTHER NEEDS AT THIS TIME. CALL LIGHT IN REACH, WILL CONTINUE PLAN OF CARE.
[2020-12-08 08:00] LABS: BASOPHILS 0.5 % (0-2); EOSINOPHILS 3.1 % (0-7); LYMPHOCYTE ABS# 2.09 10x3/uL (1.18-3.74); LYMPHOCYTES 27.9 % (15-50); MCV 93.5 fL (80.0-100.0); MEAN PLATELET VOLUME 11.8 fL (7.4-10.4); NEUTROPHIL ABS# 4.54 10x3/uL (1.56-6.13); NEUTROPHILS 60.5 % (40-80); RBC 4.49 10x6/uL (4.00-5.40); RDW 14.8 % (11.5-14.5); WBC 7.5 10x3/uL (4.8-10.8)
[2020-12-08 08:01] LABS: PLATELET COUNT 188 10x3/uL (130-400)
--- NOTE | 2020-12-08 08:29 | NUR ---
4MG OF MORPHINE GIVEN FOR PAIN LEVEL O F 03/17. PT DENIES ANY OTHER NEEDS AT THIS TIME. CALL LIGHT IN REACH.
[2020-12-08 08:46] LABS: APTT 33.9 SECONDS (22.8-39.4); INR 1.24 (0.85-1.17); PROTIME 14.5 SECONDS (11.6-15.0)
--- NOTE | 2020-12-08 09:02 | NUR ---
PT TO PNEUMATIC DEICER INSPECTOR
[2020-12-08 09:10] LABS: CALCIUM 9.4 mg/dL (8.5-10.1); CARBON DIOXIDE 28.3 mmol/L (21.0-32.0); CHLORIDE - SERUM 102 mmol/L (98-107); CHOL - HDL RATIO 4.5 ratio (2.3-4.1); CHOLESTEROL, TOTAL 188 mg/dL (0-200); CKMB 5.8 U/L (0.0-3.6); CREATINE KINASE 134 UL (21-215); HDL CHOLESTEROL 42 mg/dL (32-96); LDL CHOLESTEROL 120 mg/dL (0-100); LDL-HDL RATIO 2.9 ratio (1.5-3.5); MAGNESIUM - SERUM 2.4 mg/dL (1.8-2.4); PHOSPHOROUS 5.4 mg/dL (2.5-4.9); POTASSIUM - SERUM 3.8 mmol/L (3.5-5.1); PRO BNP 275 pg/mL (0-125); SODIUM 142 mmol/L (136-145); TRIGLYCERIDE 130 mg/dL (30-200); UREA NITROGEN 31 mg/dL (7-18); eGFR NON AFRICAN AMERICAN 17 mL/min (90-120)
[2020-12-08 09:13] LABS: CALC OSMOLALITY 290 mosm/kg (275-300); GLUCOSE 115 mg/dL (74-106)
--- NOTE | 2020-12-08 10:19 | NUR ---
RECEIVED PT BACK TO ROOM 2117, PT STILL DROWSY BUT EASILY AROUSES TO VOICE. VITAL SIGNS STABLE, PLACED PT ON FREQUENT VITAL SIGNS. RT GROIN WITH FEMSTOP IN PLACE NO S/S OF BLEEDING OR HEMATOMA NOTED. INSTRUCTED PT TO LAY FLAT FOR 4HRS. PT DENIES ANY NEEDS, CALL LGIHT IN REACH, WILL CONTINUE PLAN OF CARE.
--- NOTE | 2020-12-08 11:21 | NUR ---
NO CHANGES TO RT GROIN FROM PREVIOUS ASSESSMENT. PT RESTING COMFORTABLY IN BED, VITAL SIGNS STABLE.
[2020-12-08 11:22] LABS: CHOL - HDL RATIO 4.4 ratio (2.3-4.1); LDL-HDL RATIO 2.9 ratio (1.5-3.5)
--- NOTE | 2020-12-08 11:57 | NUR ---
UPDATED PT'S DAUGHTER ABOUT PT'S CONDITION AND PLAN OF CARE.
[2020-12-08] MEDS ORDERED: PLAVIX75 MG PO (12:09)
[2020-12-08 12:25] LABS: CKMB 5.2 U/L (0.0-3.6); CREATINE KINASE 161 UL (21-215)
[2020-12-08 12:28] LABS: TROPONIN-I 0.424 ng/mL (0.000-0.060)
--- NOTE | 2020-12-08 14:42 | NUR ---
PT STILL DROWSY WILL EASILY AROUSES TO VOICE. ALL NEEDS MET, NO CHANGES TO RT GROIN. CALL LIGHT IN REACH. CALLED AND INFORMED JASBIR PT'S DAUGHTER THAT PT IS BEING DISHCARGE. DAUGHTER WILL FIND SOMEONE TO COME PICK PT UP.
--- NOTE | 2020-12-08 16:30 | NUR ---
PT SET UP IN BED, INSTRUCTED HER TO NOT STRAIN OR PUT A LOT OF PRESSURE TO RT SIDE BECAUSE OF THE RISKS OF BLEEDING FROM HER RIGHT GROIN. PT STILL NOT SURE IF FAMILY WILL BE ABLE TO PICK HER UP TODAY. CALLED PT'S DAUGHTER MURIEL AND IT WENT STRAIGHT TO VOICEMAIL, UNABLE TO LEAVE A MSG.
--- NOTE | 2020-12-08 18:12 | NUR ---
NO CHANGES TO RIGHT GROIN, DRESSING CDI. PT DENIES ANY NEEDS AT THIS TIME. CALL LIGHT IN REACH.
--- NOTE | 2020-12-08 18:19 | NUR ---
MURIEL PT'S DAUGHTER NUMBER [phone].
--- NOTE | 2020-12-08 19:26 | NUR ---
RECEIVED UP IN BED WITH EYES CLOSED. EASILY AROUSES WITH VERBAL STIMULI. IV TO LT AC SL. HAS A RT BKA. PT HAS HER OWN INSULINB PUMP AND SUPPLIES. UPPER DENTURES IN DENTURE CUP. SAID SHE BROKE HER BOTTOM ONE A WHILE BACK. DENIES ANY NEEDS AT THIS TIME.
[2020-12-09] VITALS: BP 115/55
[2020-12-09 04:00] VITALS: BP 109/46
[2020-12-09 05:17] LABS: BASOPHILS 0.5 % (0-2); HEMATOCRIT 35.1 % (36.0-48.0); IMMATURE GRANULOCYTES 0.1 % (0-5); LYMPHOCYTE ABS# 1.41 10x3/uL (1.18-3.74); MCH 28.9 pg (26.0-34.0); MCHC 31.3 g/dL (31.0-37.0); MCV 92.1 fL (80.0-100.0); MEAN PLATELET VOLUME 11.1 fL (7.4-10.4); MONOCYTES 8.2 % (2-11); NEUTROPHIL ABS# 5.21 10x3/uL (1.56-6.13); NEUTROPHILS 70.2 % (40-80); RBC 3.81 10x6/uL (4.00-5.40); RDW 14.8 % (11.5-14.5); WBC 7.4 10x3/uL (4.8-10.8)
[2020-12-09 05:20] LABS: PLATELET COUNT 132 10x3/uL (130-400)
[2020-12-09 05:38] LABS: CALCIUM 8.5 mg/dL (8.5-10.1); CARBON DIOXIDE 27.7 mmol/L (21.0-32.0); MAGNESIUM - SERUM 2.2 mg/dL (1.8-2.4); PHOSPHOROUS 5.1 mg/dL (2.5-4.9)
[2020-12-09 06:01] LABS: POTASSIUM - SERUM 4.7 mmol/L (3.5-5.1)
--- NOTE | 2020-12-09 06:04 | NUR ---
LAB CALLED WITH CRITICAL HIGH BLOOD SUGAR. PT MANAGES HER OWN BLOOD SUGARS. HAS AN INSULIN PUMP AND CHECKS HER OWN BLOOD SUGARS. HAS ALREADY CHECKED IT THIS AM. WAS 386 AND TREATED IT.
--- NOTE | 2020-12-09 07:56 | NUR ---
AM ROUNDING DONE WITH PATIENT HAVING VOICED NO COMPLAINTS AT PRESENT. RIGHT GROIN FROM PROCEDURE SEEN YESTERDAY WITH NO DRESSING. RIGHT OLD BKA. OBESES. ON HEART MONITOR, ON LOVENOX. REFUSES SCD. ON 2L PER NC. LEFT AC PIV SEEN WITH SALINE LOCK. INSULIN PUMP IN USE, PATIENT STATES SHE CHECKS HER OWN SUGAR AND COVERS HERSELF. GLASSES ON. UPPER DENTURES IN CUP AT SINK. CALL LIGHT IN USE.
[2020-12-09 08:00] VITALS: BP 116/60
--- NOTE | 2020-12-09 08:53 | NUR ---
FSBS IS 446. PATIENT TO COVER PER INSULIN PUMP.
--- NOTE | 2020-12-09 09:39 | NUR ---
RE-CHECKED BLOOD SUGAR. 465. I DON'T THINK PATIENT GAVE HERSELF INSULIN. I HAD HER WALK ME THROUGH THE PUMP ADMINISTRATION AND GAVE HER 15.2 U.
--- NOTE | 2020-12-09 11:18 | NUR ---
FSBS IS 483. ONE TIME DOSE OF INSULIN PER DR VASQUEZ.
--- NOTE | 2020-12-09 12:54 | NUR ---
X 2 ASSIST TO BSC. MAX ASSIST. PATIENT WHILE DOING THIS PULLER HER INSULIN PUMP OUT OF HER ABDOMEN. STATES, "JUST PACK IT UP"
--- NOTE | 2020-12-09 13:46 | NUR ---
RESTING IN BED, EYES CLOSED. RESP ARE EVEN. AWAITING FAMILY FOR RIDE HOME.
--- NOTE | 2020-12-09 14:10 | OP ---
PATIENT NAME: JUAN J TORIBIO MEDICAL RECORD: [id number] :60 LOCATION:D.M2 [id number].2118 ADMISSION DATE:12/07/20 SURGEON: MARKUS MARIE MD DATE OF OPERATION: 12/08/2020 PROCEDURE: Left heart catheterization, selective coronary angiography plus IFR wire to circ plus PTCA to circ, right femoral artery approach. CATHETERS: A 5-Khmer sheath, 5/4 left and right Carlos, 5/4 pig. The procedure was well tolerated. The patient was returned to the kimball. Sheath removed. ExoSeal device was placed. FINDINGS: Left ventriculography in 30-degree WOO view: Normal wall motion, normal systolic function. CORONARY ANATOMY: Left main: Left main is free of disease. LAD: Previous stenting is widely patent. Circumflex: 2 areas of stenting obviously culprit with a 90% stenosed proximal and ostial circumflex stent and 80% stenosed distal stent. Right coronary artery: Previous stenting area is widely patent. PLAN: Intervention to circ momentarily. DESCRIPTION: A 5-Khmer sheath was exchanged for a 6-Khmer sheath across both lesions in the circumflex with a IFR wire. Next, a 3.0 x 50 mm balloon was taken to 10 atmospheres, both proximally and distally for approximately 45 seconds each inflation. Final angiography shows excellent resolution of 90% proximal stenosis as well as 80% distal stenosis confirmed with IFR wire of 0.98. Sheath was closed with ExoSeal device. Plavix was loaded in the lab. TRANSINT:[id number] Voice Confirmation ID: [id number] DOCUMENT ID: [id number] MARKUS MARIE MD at 1410 CC: [id number] DICTATION DATE: 12/08/20 0945 FULL STACK SOFTWARE DEVELOPER: 12/08/20 1320 ADM IN [facility] [address] [id number]
--- NOTE | 2020-12-09 14:52 | NUR ---
VERBAL AND WRITTEN DISCHARGE INSTRUCTIONS GIVEN TO PATIENT AND FAMILY MEMBER HERE FOR PICKUP. INSULIN PUMP IS IN BELONGINGS BAG ALONG WITH CELL PHONE AND THIS IS SHOWN TO THE MALE VISITOR FOR PICKUP. THERAPY X 2 TO ASSIST PATIENT TO WHEELCHAIR AND TO CAR. SALINE LOCK REMMOVED WITH TIP INTACT. HEART MONITOR TURNED IN.
== END 2020-12-09 14:55 | disposition home or self-care (01) ==
LOC: D.M2 21:15 → OBSVTIME 12-08 16:58 → D.M2 12-09 14:55
PROVIDERS: Internal Medicine Cardiovascular Disease; ADMIT Emergency Medicine; ATTEND Emergency Medicine
DX: I25.110 Atherosclerotic heart disease of native coronary artery with unstable angina pectoris (principal); E78.5 Hyperlipidemia, unspecified; E11.40 Type 2 diabetes mellitus with diabetic neuropathy, unspecified; N18.9 Chronic kidney disease, unspecified; G47.33 Obstructive sleep apnea (adult) (pediatric); M19.90 Unspecified osteoarthritis, unspecified site; J44.9 Chronic obstructive pulmonary disease, unspecified; E11.22 Type 2 diabetes mellitus with diabetic chronic kidney disease; Z79.4 Long term (current) use of insulin; E87.6 Hypokalemia